=== PATIENT | male | born 1945 | race African-American/Black ===

== ENCOUNTER 2018-01-09 04:31 | Emergency (ER) | payer MEDICARE, BC ==
[2018-01-09 05:01] LABS: #Eosinphils 0.1 thou/uL (0.0-0.7); #Lymphocytes 1.7 thou/uL (1.20-3.40); #Monocytes 0.7 thou/uL (0.11-0.59); #Neutrophils 5.7 thou/uL (1.40-6.50); %Basophils 0.3 % (0.0-1.0); %Eosinophils 1.6 % (0.0-10.0); %Lymphocytes 20.4 % (21.0-51.0); %Monocytes 8.2 % (0.0-10.0); %Neutrophils 69.6 % (42.0-75.0); Hemoglobin 12.2 g/dL (14.0-18.0); Mean Corpuscular Hemoglobin 32.2 pg (27.0-31.0); Mean Platelet Volume 6.8 fL (7.4-10.4); Platelet Count 303 thou/uL (130-400); RBC Distribution Width 13.3 % (11.5-14.5); Red Blood Cell (RBC) Count 3.79 mill/uL (4.70-6.10); White Blood Cell (WBC) Count 8.3 thou/uL (4.8-10.8)
[2018-01-09 05:25] LABS: ALT (SGPT) 15 U/L (8-55); AST (SGOT) 16 U/L (5-34); Albumin 3.8 g/dL (3.4-4.8); Alkaline Phosphatase 60 U/L (40-150); Anion Gap 9 mmol/L (10-20); BUN (Urea Nitrogen) 15 mg/dL (8.4-25.7); Bilirubin, Total 0.7 mg/dL (0.2-1.2); CK (CPK) 70 U/L (30-200); Calc. Creatinine Clearance 0 mL/min (70-130); Calcium 9.4 mg/dL (7.8-10.44); Carbon Dioxide 28 mmol/L (23-31); Chloride 107 mmol/L (98-107); Estimated GFR-MDRD Greater than 90; Glucose 109 mg/dL (83-110); Lipase 12 U/L (8-78); Potassium 3.7 mmol/L (3.5-5.1); Protein, Total 6.8 g/dL (5.8-8.1); Sodium 140 mmol/L (136-145)
[2018-01-09 05:29] LABS: Troponin I 0.092 ng/mL (< 0.028)
--- NOTE | 2018-01-09 09:06 | RAD ---
SINGLE VIEW OF THE CHEST: Comparison: 12-24-17 FINDINGS: Single view of the chest shows a normal sized cardiomediastinal silhouette. Multiple monitors overlie the chest which obscures visualization. There is no evidence of consolidation, mass, or pleural effu bobby. IMPRESSION: No evidence of acute cardiopulmonary disease. POS: [facility]
== END 2018-01-09 06:47 | disposition home or self-care (01) ==
LOC: ERS 04:31
DX: R53.1 Weakness (principal); I10 Essential (primary) hypertension; I25.2 Old myocardial infarction; Z79.899 Other long term (current) drug therapy
CPT/HCPCS: 71045; 80053; 82553; 83690; 83735; 84443; 84484; 85025; 93005

== ENCOUNTER 2018-01-15 03:18 | Inpatient (IN) | payer MEDICARE, BC ==
[2018-01-15] MEDS ORDERED: Nitroglycerin 2% Ointment 1 INCH/1 GM Packet ONE (03:46)
[2018-01-15 03:52] LABS: #Eosinphils 0.1 thou/uL (0.0-0.7); #Lymphocytes 1.2 thou/uL (1.20-3.40); #Monocytes 0.7 thou/uL (0.11-0.59); #Neutrophils 4.9 thou/uL (1.40-6.50); %Basophils 0.7 % (0.0-1.0); %Eosinophils 1.3 % (0.0-10.0); %Lymphocytes 17.7 % (21.0-51.0); %Monocytes 9.7 % (0.0-10.0); %Neutrophils 70.6 % (42.0-75.0); Hemoglobin 12.3 g/dL (14.0-18.0); Mean Corpuscular HGB CONC 32.8 g/dL (32.0-36.0); Mean Corpuscular Hemoglobin 33.3 pg (27.0-31.0); Mean Platelet Volume 7.3 fL (7.4-10.4); Platelet Count 237 thou/uL (130-400); RBC Distribution Width 13.6 % (11.5-14.5); White Blood Cell (WBC) Count 6.9 thou/uL (4.8-10.8)
[2018-01-15 03:58] LABS: INR-International Normal Ratio 0.9; Prothrombin Time 12.6 SEC (12.0-14.7)
[2018-01-15] MEDS ORDERED: Ondansetron HCl/PF 4 MG/2 ML Vial IVP PRN ×2 (04:00→07:50)
[2018-01-15] MEDS ORDERED: Ondansetron ODT 4 MG TAB SL PRN (04:00)
[2018-01-15] MEDS ORDERED: Acetaminophen 325 MG TAB PO PRN ×2 (04:00→07:50)
[2018-01-15 04:13] LABS: ALT (SGPT) 14 U/L (8-55); AST (SGOT) 25 U/L (5-34); Albumin 3.8 g/dL (3.4-4.8); Alkaline Phosphatase 59 U/L (40-150); Anion Gap 12 mmol/L (10-20); BUN (Urea Nitrogen) 16 mg/dL (8.4-25.7); Bilirubin, Total 0.7 mg/dL (0.2-1.2); Calc. Creatinine Clearance 0 mL/min (70-130); Calcium 9.3 mg/dL (7.8-10.44); Carbon Dioxide 25 mmol/L (23-31); Chloride 105 mmol/L (98-107); Estimated GFR-MDRD Greater than 90; Globulin 2.9 g/dL (2.4-3.5); Glucose 128 mg/dL (83-110); Lipase 68 U/L (8-78); Protein, Total 6.7 g/dL (5.8-8.1); Sodium 138 mmol/L (136-145)
[2018-01-15 04:17] LABS: CKMB 4.7 ng/mL (0-6.6)
[2018-01-15 04:23] LABS: Troponin I 2.142 ng/mL (< 0.028)
[2018-01-15] MEDS ORDERED: Metoprolol Tartrate 5 MG/5 ML VIAL ONE (04:48)
[2018-01-15] MEDS ORDERED: Enoxaparin Sodium 80 MG/0.8 ML SYRINGE ONE (04:55)
[2018-01-15 07:17] LABS: Troponin I 2.269 ng/mL (< 0.028)
[2018-01-15 07:37] VITALS: BMI 23.0
[2018-01-15] MEDS ORDERED: Mag-Al 1200 mg/1200 mg/30 ML UDCUP PO PRN (07:50)
[2018-01-15] MEDS ORDERED: Nitroglycerin 0.4 MG TAB (25 Tab Bottle) SL PRN (07:50)
[2018-01-15] MEDS ORDERED: Milk Of Magnesia 30 ML UDCUP PO PRN (07:50)
[2018-01-15] MEDS ORDERED: Ondansetron ODT 4 MG TAB PO PRN (07:50)
--- NOTE | 2018-01-15 07:54 | RAD ---
CHEST 1 VIEW: Date: 01/15/18 COMPARISON: 01/09/18. HISTORY: Pain. FINDINGS: Normal cardiac silhouette. Pulmonary vessels and hilum are normal. Costophrenic angles are clear. No masses or consolidation. Chronic changes in left lung base. No pneumothorax or osseous abnormalities. Overlying monitor leads are identified. IMPRESSION: Chronic changes in left lung base. No acute cardiopulmonary process. POS: [facility]
--- NOTE | 2018-01-15 08:25 | HP ---
PRIMARY CARE PHYSICIAN: Dr. Simon. DAIRY WORKER: Dr. Bustamante. CHIEF COMPLAINT: Chest tightness. HISTORY OF PRESENT ILLNESS: Mr. Page is a pleasant 72-year-old gentleman that has a history of hypertension as well as coronary artery disease. He was recently seen at our facility about a month ago for coronary artery disease. At that time, he underwent a cardiac catheterization and was found to have multivessel disease with severe diffuse disease in the diagonal, left circumflex , the IR, the RCA, and he had 40% lesion in the LAD, and his ejection fraction was estimated at 40%. It was recommended that he be treated medically and Plavix and an LADY inhibitor were added to his regimen and he was discharged. He says that he has been taking his medications regularly since then and then last night he says he woke up around 02:45 in the a.m. with severe tightness in his chest. He said it was in the middle of his chest moving towards the right side. He says he was short of breath with it as well. He did not have any nausea, vomiting, or diaphoresis, but he did have some palpitations. He says the tightness worsened and he came to the emergency room. There, he was given a nitro paste, aspirin, and Lovenox, and he says that it is much better now, but it has not completely resolved yet. He denies having any leg swelling, no PND, no orthopnea recently. REVIEW OF SYSTEMS: All systems were reviewed and are negative except for that mentioned in the history of present illness. PAST MEDICAL HISTORY: Significant for hypertension, rheumatoid arthritis, depression, tobacco abuse, and coronary artery disease, and actually he is a former tobacco abuser. PAST SURGICAL HISTORY: He has had a tonsillectomy and knee surgery. ALLERGIES: PENICILLIN. SOCIAL HISTORY: He is a former smoker. He said he quit years ago. He denies any alcohol use. He is and has 1 child. He would like to be a F[employer] and his surrogate decision maker is his , Makeda. FAMILY HISTORY: Significant for hypertension. CURRENT MEDICATIONS: Include lisinopril 5 mg daily, Plavix 75 mg daily, carvedilol 3.125 mg twice a day, atorvastatin 40 mg daily, aspirin 325 mg daily , Ranexa 500 mg twice a day, prednisone 5 mg twice daily, Arava 20 mg daily, hydrocodone 30 mg twice a day as needed. PHYSICAL EXAMINATION: GENERAL: He is alert and oriented. He appears to be in no acute distress. He is well-developed and well-nourished. VITAL SIGNS: Blood pressure was 151/89, heart rate 108, respiratory rate of 18 , temperature is 98. HEENT: Pupils are equal, round, and reactive. Extraocular muscles are intact. His sclerae are anicteric. Throat: There is no erythema, no exudates. NECK: No adenopathy, no bruits. LUNGS: Clear to auscultation. There is no wheezing, no rales, no rhonchi, and his breath sounds were not good. CARDIOVASCULAR: He had a normal S1 and S2. I did not appreciate an S3 or S4. No murmurs or clicks, no rubs. ABDOMEN: Soft, it is nontender, nondistended. Positive for bowel sounds. There is no rebound, no guarding, no organomegaly. EXTREMITIES: There is no clubbing or cyanosis, no edema. NEUROLOGIC: He has got no calf muscle tenderness and dorsalis pedis pulses were palpable. SKIN AND INTEGUMENT: There are no skin lesions, no rash. Skin is warm and dry and adequate skin turgor. LABORATORY RESULTS: On his EKG and this is by my reading, it was sinus rhythm. The rate was 116. There was some ST-segment depression in V5 through V6. His chest x-ray, this is also by my reading, can see the overlying LifeVest leads. Heart size appears actually normal and there was some increasing pulmonary vascular markings. Costophrenic angles are sharp, no evidence of any effusion, possible volume overload. White blood cell count was 6.9, hemoglobin 12.3, hematocrit is 37.6, MCV 102, platelet count is 237. INR 0.9. Chemistry: Sodium 138, potassium 4.0, chloride is 105, CO2 is 25, BUN of 16, creatinine 0.9, glucose is 128. Troponin is 2.142. ASSESSMENT AND PLAN: This is a pleasant 72-year-old gentleman, who presents to the emergency room with, 1. NSTEMI- Chest tightness. He had an elevated troponin in the positive range. He also has known multivessel coronary artery disease, which is being treated medically. He is being admitted to the hospital for a non-ST segment elevated MT. He is going to be placed on telemetry. We will continue aspirin, nitrates, beta blockers, and full-dose heparin, and also continue Plavix as well. We will continue to trend his cardiac enzymes until they begin to trend down. 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 2. Hypertension. We will continue lisinopril for blood pressure management as well as p.r.n. medicines as needed. 3. Rheumatoid Arthritis - Will continue his home medications 3. He will be placed on gastrointestinal prophylaxis. DOUGLAS
[2018-01-15] MEDS ORDERED: HYDROCODONE BITARTRATE 30 MG PO PRN (09:15)
[2018-01-15] MEDS: Lisinopril 5 MG TAB PO SCH (09:29)
[2018-01-15] MEDS: Clopidogrel Bisulfate 75 MG TAB PO SCH (09:30)
[2018-01-15] MEDS: Famotidine 20 MG TAB PO SCH ×2 (09:30→20:27)
[2018-01-15] MEDS: Docusate 100 MG CAP PO SCH ×2 (09:30→20:28)
[2018-01-15] MEDS: Leflunomide 10 mg Tablet PO SCH (09:31)
[2018-01-15 10:46] LABS: Troponin I 2.329 ng/mL (< 0.028)
[2018-01-15 10:53] LABS: Calc. Creatinine Clearance 85 mL/min (70-130); Estimated GFR-MDRD Greater than 90
[2018-01-15 10:53] LABS: Hemoglobin 11.4 g/dL (14.0-18.0); Platelet Count 249 thou/uL (130-400)
[2018-01-15] MEDS: Carvedilol 3.125 MG TAB PO SCH ×2 (11:52→16:33)
[2018-01-15] MEDS ORDERED: Nitroglycerin 2% Ointment 1 INCH/1 GM Packet TOP SCH (12:00)
--- NOTE | 2018-01-15 13:25 | CON ---
DATE OF CONSULTATION: 01/15/2018 REASON FOR CONSULTATION: Non-STEMI. HISTORY OF PRESENT ILLNESS: Mr. Page is a very pleasant 72-year-old gentleman who comes to the hospital for an episode of chest pain. He was at home, he said, he had a steak h e thinks he should not have had this. Eventually was woken up at about 3:00 a.m. with severe chest t ightness, diaphoresis, and shortness of breath. It did not get any better, so he decided to come in for evaluation. He was found to have elevated troponins, so Cardiology is being consulted for this, but he does have a history of coronary disease about 2 weeks ago. He came in with a similar presenta tion with a non-STEMI and he was found to have a diffuse disease with very severe circumflex disease. He has a left dominant system LPL was severely diseased at a bifurcation, not a good artery for maikel nting and he had an intermediate ramus that was too small for any intervention that was thought to be the culprit as it had only ELIESER 1 flow. His LAD had long calcified lesion about 40%-50% mid vessel and he had a severely reduced EF at about 30%-35%, so he was sent home on a LifeVest. He had been do ing well otherwise. He tells me his blood pressure at home has been in the 130s to 150s most of the time. Currently, he is pain free. PAST MEDICAL HISTORY: 1. Hypertension. 2. Rheumatoid arthritis. 3. Anxiety depression. 4. Tobacco abuse. 5. Coronary artery disease as above. 6. Quit smoking recently. PAST SURGICAL HISTORY: 1. Tonsillectomy. 2. Knee surgery. ALLERGIES: PENICILLIN. OUTPATIENT MEDICATIONS: 1. Prednisone 5 mg p.o. b.i.d. 2. Ranexa 500 mg b.i.d. 3. Lisinopril 5 mg a day. 4. Arava 20 mg a day. 5. Hydrocodone p.r.n. 6. Plavix 75 mg a day. 7. Coreg 3.125 mg b.i.d. 8. Lipitor 40 mg a day. 9. Aspirin 325 a day. SOCIAL HISTORY: Former tobacco use, quit some years ago. No alcohol use, no drug use. FAMILY HISTORY: Noncontributory. REVIEW OF SYSTEMS: A 12-point review of systems was done and is all negative unless stated in the hi story of present illness. PHYSICAL EXAMINATION: VITAL SIGNS: Temperature 98.5, pulse 90, respiration rate 17, satting 96% on room air, blood pressur e 140/73. GENERAL: Awake, alert, oriented x3, in no distress. HEENT: Normocephalic, atraumatic. NECK: Supple. LUNGS: Clear. CARDIOVASCULAR: S1, S2, no S3, S4, no murmurs, no rubs. ABDOMEN: Soft, positive bowel sounds. EXTREMITIES: No edema. SKIN: Warm and dry. LABORATORY WORK: Reviewed. CBC with a white count of 6.9, hemoglobin 12.3, hematocrit 37, platelet count 237. Coags were negative. Chemistries with troponin initially at 2.1, then 2.2, then 2.3. GF R is greater than 90. BNP was 337, albumin of 3.8. EKG was reviewed, no acute ischemic changes, some ST depression suggestive of anterolateral ischemia. Most recent echo was done about 20 days ago with an EF of 30%-35%. Hypokinesis of the apex and anter olateral hypokinesis, 1-3 diastolic heart failure. RVSP was 38 mmHg. ASSESSMENT AND PLAN: 1. Non-ST elevation myocardial infarction. 2. Coronary artery disease. Multivessel. Small branching disease, not amenable to catheter based i nterventions. 3. Hypertension. PLAN: 1. Full anticoagulation with Lovenox today and tomorrow. 2. I have spoken with him about possibly revascularization with bypass which would be the only optio n right now. He said that he would like to exhaust all medication treatment before bypass is conside red. His artery is a very small and diffusely diseased. I will talk one of the surgeons to see if jose edge is even a candidate for bypass at all and his LAD seems to be moderately diseased, but it is a long lesion, so this may be ischemic and may hold a CONNELL for a long time. We will get their opinion to s ee what they think about his coronary anatomy. Otherwise, I will maximize his antianginal medication s with adding Imdur at 30 mg a day. This will also help his blood pressure. He is already on a beta butch, Plavix, aspirin, statin, and an LADY inhibitor, ranolazine already at 500 b.i.d. as well. Thank you for letting us participate in the care of your patient. We will follow.
[2018-01-15] MEDS: predniSONE 5 MG TAB PO SCH (16:33)
[2018-01-15] MEDS: Atorvastatin Calcium 40 MG TAB PO SCH (20:27)
[2018-01-15] MEDS: Enoxaparin Sodium 80 MG/0.8 ML SYRINGE SC SCH (20:28)
[2018-01-16 05:39] LABS: #Eosinphils 0.1 thou/uL (0.0-0.7); #Lymphocytes 1.4 thou/uL (1.20-3.40); #Monocytes 0.7 thou/uL (0.11-0.59); #Neutrophils 3.4 thou/uL (1.40-6.50); %Basophils 0.6 % (0.0-1.0); %Eosinophils 2.5 % (0.0-10.0); %Lymphocytes 25.1 % (21.0-51.0); %Monocytes 12.9 % (0.0-10.0); Hemoglobin 11.6 g/dL (14.0-18.0); Mean Corpuscular HGB CONC 32.6 g/dL (32.0-36.0); Mean Corpuscular Hemoglobin 32.9 pg (27.0-31.0); Mean Platelet Volume 7.7 fL (7.4-10.4); Platelet Count 235 thou/uL (130-400); RBC Distribution Width 13.5 % (11.5-14.5); Red Blood Cell (RBC) Count 3.53 mill/uL (4.70-6.10); White Blood Cell (WBC) Count 5.7 thou/uL (4.8-10.8)
[2018-01-16 05:41] LABS: Anion Gap 10 mmol/L (10-20); BUN (Urea Nitrogen) 10 mg/dL (8.4-25.7); Calc. Creatinine Clearance 93 mL/min (70-130); Calcium 8.7 mg/dL (7.8-10.44); Carbon Dioxide 24 mmol/L (23-31); Cardiac Risk 2.2 (Less than 4.5); Chloride 107 mmol/L (98-107); Cholesterol 137 mg/dl (< 200 Desired); Estimated GFR-MDRD Greater than 90; Glucose 86 mg/dL (83-110); HDL Cholesterol 61 mg/dL (>60 Neg Risk); LDL Cholesterol, Calculated 61 mg/dL; Potassium 3.9 mmol/L (3.5-5.1); Sodium 137 mmol/L (136-145); Triglycerides 73 mg/dL (Less than 150)
[2018-01-16] MEDS: Docusate 100 MG CAP PO SCH ×2 (11:08→20:31)
[2018-01-16] MEDS: Famotidine 20 MG TAB PO SCH ×2 (11:08→20:31)
[2018-01-16] MEDS: Carvedilol 3.125 MG TAB PO SCH ×2 (11:08→17:01)
[2018-01-16] MEDS: Lisinopril 5 MG TAB PO SCH (11:08)
[2018-01-16] MEDS: Leflunomide 10 mg Tablet PO SCH (11:09)
[2018-01-16] MEDS: Clopidogrel Bisulfate 75 MG TAB PO SCH (11:09)
[2018-01-16] MEDS: predniSONE 5 MG TAB PO SCH ×2 (11:10→17:00)
[2018-01-16] MEDS: Aspirin 325 mg Enteric Coated Tablet PO SCH (11:10)
[2018-01-16] MEDS: Enoxaparin Sodium 80 MG/0.8 ML SYRINGE SC SCH ×2 (11:12→20:30)
--- NOTE | 2018-01-16 12:33 | PDOC.PN ---
- Subjective Encounter Start Date: 01/16/18 Encounter Start Time: 12:31 Mr. Page was seen today in follow-up of NSTEMI. He does not have any complaints. He denies having any chest tightness. He denies any shortness of breath. - Objective Resuscitation Status: Resuscitation Status FULL:Full Resuscitation MAR Reviewed: Yes Vital Signs & Weight: Vital Signs (12 hours) Temp Pulse Pulse Pulse Resp BP BP 01/16/18 11:08 90 01/16/18 10:09 99 103 H 131/63 155/76 H 01/16/18 04:00 97.8 F 90 12 BP Pulse Ox Pulse Ox Pulse Ox 01/16/18 11:08 01/16/18 10:09 98 96 01/16/18 04:00 132/69 97 Weight Weight 164 lb 14.4 oz I&O: 01/15/18 01/16/18 01/17/18 06:59 06:59 06:59 Intake Total 1200 Output Total 950 Balance 250 Result Diagrams: 01/16/18 04:55 01/16/18 04:55 Phys Exam - Physical Examination HEENT: PERRLA Respiratory: no wheezing, no rales, no rhonchi, clear to auscultation bilateral Cardiovascular: RRR, no significant murmur, no rub Gastrointestinal: soft, non-tender, no distention, positive bowel sounds Musculoskeletal: no edema Dx/Plan (1) Non-ST elevation DC (NSTEMI) Code(s): I21.4 - NON-ST ELEVATION (NSTEMI) MYOCARDIAL INFARCTION Status: Acute Comment: s/p cardiac cath showing diffuse disease with EF 40%, med mgmt , ASA 325mg and Plavix 75mg daily (2) HTN (hypertension) Code(s): I10 - ESSENTIAL (PRIMARY) HYPERTENSION Status: Chronic Qualifiers: Hypertension type: essential hypertension Qualified Code(s): I10 - Essential (primary) hypertension Comment: Resume Bystolic, add Hydralazine, serial monitoring (3) Rheumatoid arthritis Code(s): M06.9 - RHEUMATOID ARTHRITIS, UNSPECIFIED Status: Acute - Plan * NSTEMI- discussed with Dr. Bustamante. He offered to have him evaluated for Bypass Surgery, however the patient would like to try and maximize medical therapy before considering this * Imdur was added to his regimen * HTN - blood pressure has improved * Rheumatoid arthritis- stable * Disposition as per [employer] Special [employer] Teacher.
--- NOTE | 2018-01-16 18:25 | PDOC.CTH ---
Cardiology Progress Note - Subjective He is doing well. No more chest tightness. - Objective Vital Signs Temp Pulse Pulse Pulse Resp BP BP 01/16/18 16:30 98.6 F 93 16 01/16/18 11:44 98.0 F 86 18 01/16/18 11:08 90 01/16/18 10:09 99 103 H 131/63 155/76 H 01/16/18 08:10 97.8 F 80 20 BP Pulse Ox Pulse Ox Pulse Ox 01/16/18 16:30 130/70 98 01/16/18 11:44 103/51 L 98 01/16/18 11:08 01/16/18 10:09 98 96 01/16/18 08:10 116/59 L 97 Weight 164 lb 14.4 oz 01/15/18 01/16/18 01/17/18 06:59 06:59 06:59 Intake Total 1200 Output Total 950 Balance 250 - Physical Examination General/Neuro: alert & oriented x3, NAD Neck: no JVD present Lungs: CTA, unlabored respirations Heart: RRR Abdomen: NT/ND Extremities: other: (no edema.) - Telemetry Telemetry Rhythm: NSR - Labs Result Diagrams: 01/16/18 04:55 01/16/18 04:55 Troponin/CKMB CK-MB (CK-2) 4.7 ng/mL (0-6.6) 01/15/18 03:39 Troponin I 2.329 ng/mL (< 0.028) H* 01/15/18 09:33 - Assessment/Plan 1. NSTEMI 2. Severe ischemic CM EF at 20% 3. CAD. 4. Moderate AI PLAN: - Continue Lifevest use - I reviewed the films and the general consensus is that he would benefit from CABG with a CONNELL to LAD. - Will also need AVR due to moderate AI. - He is amenable to this. will ask CT surgery consultation. He is on plavix and it would be prudent to wait 7 days after holding before surgery. This may be done as an outpatient. He is currently asymptomatic an may be discharged once we have a plan with surgery moving forward.
[2018-01-16] MEDS: Atorvastatin Calcium 40 MG TAB PO SCH (20:31)
[2018-01-17] MEDS: Leflunomide 10 mg Tablet PO SCH (10:10)
[2018-01-17] MEDS: Famotidine 20 MG TAB PO SCH (10:10)
[2018-01-17] MEDS: predniSONE 5 MG TAB PO SCH ×2 (10:11→19:37)
[2018-01-17] MEDS: Carvedilol 3.125 MG TAB PO SCH ×2 (10:11→19:37)
[2018-01-17] MEDS: Clopidogrel Bisulfate 75 MG TAB PO SCH (10:11)
[2018-01-17] MEDS: Docusate 100 MG CAP PO SCH (10:11)
[2018-01-17] MEDS: Lisinopril 5 MG TAB PO SCH (10:11)
[2018-01-17] MEDS: Aspirin 325 mg Enteric Coated Tablet PO SCH (10:12)
[2018-01-17] MEDS: Enoxaparin Sodium 80 MG/0.8 ML SYRINGE SC SCH (10:12)
[2018-01-17 13:26] VITALS: BP 110/58; TEMP 98.9
--- NOTE | 2018-01-17 15:52 | PDOC.PN ---
- Subjective Encounter Start Date: 01/17/18 Encounter Start Time: 15:49 Mr. Page was seen today in follow-up of NSTEMI. He does not have any complaints. He denies chest pain and shortness of breath. - Objective Resuscitation Status: Resuscitation Status FULL:Full Resuscitation MAR Reviewed: Yes Vital Signs & Weight: Vital Signs (12 hours) Temp Pulse Pulse Pulse Resp BP BP 01/17/18 13:24 98.9 F 97 18 01/17/18 10:20 116 H 112 H 166/78 H 131/57 L 01/17/18 10:11 118 H 01/17/18 09:41 98.1 F 118 H 01/17/18 04:05 98.0 F 89 16 BP BP Pulse Ox Pulse Ox Pulse Ox 01/17/18 13:24 110/58 L 100 01/17/18 10:20 100 98 01/17/18 10:11 01/17/18 09:41 141/69 H 96 01/17/18 04:05 117/56 L 96 Weight Weight 164 lb 14.4 oz I&O: 01/16/18 01/17/18 01/18/18 06:59 06:59 06:59 Intake Total 1200 240 Output Total 950 700 Balance 250 -460 Result Diagrams: 01/16/18 04:55 01/16/18 04:55 Phys Exam - Physical Examination HEENT: PERRLA Respiratory: no wheezing, no rales, no rhonchi, clear to auscultation bilateral Cardiovascular: RRR, no significant murmur, no rub no gallop Gastrointestinal: soft, non-tender, no distention, positive bowel sounds Musculoskeletal: edema present Dx/Plan (1) Non-ST elevation OK (NSTEMI) Code(s): I21.4 - NON-ST ELEVATION (NSTEMI) MYOCARDIAL INFARCTION Status: Acute Comment: s/p cardiac cath showing diffuse disease with EF 40%, med mgmt , ASA 325mg and Plavix 75mg daily (2) HTN (hypertension) Code(s): I10 - ESSENTIAL (PRIMARY) HYPERTENSION Status: Chronic Qualifiers: Hypertension type: essential hypertension Qualified Code(s): I10 - Essential (primary) hypertension Comment: Resume Bystolic, add Hydralazine, serial monitoring (3) Rheumatoid arthritis Code(s): M06.9 - RHEUMATOID ARTHRITIS, UNSPECIFIED Status: Acute - Plan * NSTEMI- Imdur has been added to his regimen. * He has been stabized with two days of Full dose Lovenox * He is stable for discharge .
--- NOTE | 2018-01-17 17:43 | PDOC.CTH ---
Cardiology Progress Note - Subjective No chest pain, tightness ,pressure, SOB. - Objective Vital Signs Temp Pulse Pulse Pulse Resp BP BP 01/17/18 13:24 98.9 F 97 18 01/17/18 10:20 116 H 112 H 166/78 H 131/57 L 01/17/18 10:11 118 H 01/17/18 09:41 98.1 F 118 H BP BP Pulse Ox Pulse Ox Pulse Ox 01/17/18 13:24 110/58 L 100 01/17/18 10:20 100 98 01/17/18 10:11 01/17/18 09:41 141/69 H 96 Weight 164 lb 14.4 oz 01/16/18 01/17/18 01/18/18 06:59 06:59 06:59 Intake Total 1200 240 Output Total 950 700 Balance 250 -460 - Physical Examination General/Neuro: alert & oriented x3, NAD Neck: no JVD present Lungs: CTA, unlabored respirations Heart: RRR Abdomen: NT/ND Extremities: other: (no edema) - Telemetry Telemetry Rhythm: NSR - Labs Result Diagrams: 01/16/18 04:55 01/16/18 04:55 Troponin/CKMB CK-MB (CK-2) 4.7 ng/mL (0-6.6) 01/15/18 03:39 Troponin I 2.329 ng/mL (< 0.028) H* 01/15/18 09:33 - Assessment/Plan 1. NSTEMI 2. Severe ischemic CM EF at 20% 3. CAD. 4. Moderate AI 5. Rheumatoid arthritis. PLAN: - Continue Lifevest use - Continue medical therapy for now. - He will see CT surgery as an outpatient in the next few days to discuss possible CABG and possible AVR due to his Moderate AI. - He is stable for discharge home.
--- NOTE | 2018-01-18 02:18 | DIS ---
DATE OF ADMISSION: 01/15/2018 DATE OF DISCHARGE: 01/17/2018 PRIMARY CARE PHYSICIAN: Dr. Andrew Gauthier. DISCHARGE DISPOSITION: Home. PRIMARY DISCHARGE DIAGNOSES: 1. Non-ST elevation myocardial infarction. 2. Chronic systolic heart failure. 3. Hypertension. 4. Rheumatoid arthritis. DISCHARGE MEDICATIONS: Include Imdur 30 mg 1 p.o. daily was added. Continue Ranexa 500 mg twice a d ay, Zestril 5 mg daily, Plavix 75 mg daily, carvedilol 3.125 mg twice a day, Lipitor 40 mg daily, asp irin 325 mg daily, prednisone 5 mg twice a day, Arava 20 mg daily, and hydrocodone 30 mg extended-rel ease twice a day. PROCEDURES DONE DURING ADMISSION: The patient had an echocardiogram, which demonstrated an ejection fraction estimated at 20%-25%. There was grade I/III diastolic dysfunction and severe global hypokin esis. CODE STATUS: FULL CODE. ALLERGIES: PENICILLINS. HOSPITAL COURSE: Mr. Page is a pleasant 72-year-old gentleman who presented to the emergency room with complaints of chest tightness as well as some dyspnea. He was evaluated in the ER and found to have an elevated troponin. He was evaluated by his spray dry operator. He has known multivessel coronary artery disease and had recently been cathed last month. At that time, it was recommended that he und ergo medical management; however, on this occasion, he was offered potential revascularization with c onsideration of bypass surgery. The patient seemed agreeable, however, since he has had this recent NSTEMI, Dr. Bustamante feels that the best to wait a few weeks for him to stabilize and then consider byp ass surgery as an outpatient. He did add Imdur to his regimen and he is currently being discharged.
== END 2018-01-17 17:40 | disposition home or self-care (01) | DRG 281 ==
LOC: ERS 03:18 → 2NO 07:02
PROVIDERS: ADMIT Internal Medicine; ATTEND Internal Medicine
DX: I21.4 Non-ST elevation (NSTEMI) myocardial infarction (principal); I50.22 Chronic systolic (congestive) heart failure; I25.10 Atherosclerotic heart disease of native coronary artery without angina pectoris; Z79.02 Long term (current) use of antithrombotics/antiplatelets; M06.9 Rheumatoid arthritis, unspecified; F32.9 Major depressive disorder, single episode, unspecified; Z87.891 Personal history of nicotine dependence; Z88.0 Allergy status to penicillin; I11.0 Hypertensive heart disease with heart failure; F41.9 Anxiety disorder, unspecified; Z79.52 Long term (current) use of systemic steroids
CPT/HCPCS: 36415; 71045; 80048; 80053; 80061; 82553; 83690; 83880; 84484; 85025; 85610; 93005; 93306; 93798; 96372; 96374; J1650

== ENCOUNTER 2018-01-29 13:00 | Inpatient (IN) | payer MEDICARE, BC ==
[2018-01-29 15:19] VITALS: BMI 23.3
[2018-01-30] MEDS ORDERED: Clindamycin/D5W 900 mg/50 ml Premix Bag ONE (06:15)
[2018-01-30] MEDS ORDERED: Albumin 5% 0 ML ONE (06:22)
[2018-01-30] MEDS ORDERED: Midazolam HCl 5 mg/5 ml Vial ONE (06:23)
[2018-01-30] MEDS ORDERED: Fentanyl 250 MCG/5 ML VIAL ONE (06:23)
[2018-01-30] MEDS ORDERED: Vecuronium 10 MG VIAL ONE ×2 (06:24→14:44)
[2018-01-30] MEDS ORDERED: Dexmedetomidine 200 MCG/2 ML VIAL ONE (06:24)
[2018-01-30] MEDS ORDERED: Albumin 5% 500 ML ONE (06:27)
[2018-01-30] MEDS ORDERED: Vancomycin HCl 1.5 GM in Sodium Chloride 0.9% 250 ML 300 ML IVPB SCH (06:30)
[2018-01-30] MEDS ORDERED: Heparin 10,000 UNITS/1 ML VIAL 30,000 UNITS in Sodium Chloride 0.9% 1,000 ML FS SCH (06:45)
[2018-01-30] MEDS ORDERED: Hydrocortisone Sod Succ/PF 100 mg/2 ml Vial ONE ×2 (07:03→14:44)
[2018-01-30] MEDS ORDERED: PHENYLEPHRINE-NS 100 MCG/ML 10 ML SYRINGE ONE (07:14)
[2018-01-30] MEDS ORDERED: Milrinone 10 MG/10 ML VIAL ONE ×2 (07:14→08:28)
[2018-01-30] MEDS ORDERED: Nitroglycerin 50 MG/250 ML BOT 250 ML IVPB PRN (11:00)
[2018-01-30] MEDS ORDERED: D5 1/2 NS w/20 mEq KCL 1,000 ML IV SCH (11:00)
[2018-01-30] MEDS ORDERED: Hetastarch 6% 500 ML 500 ML IVPB PRN (11:00)
[2018-01-30] MEDS ORDERED: Post-Op Insulin Drip Protocol IVPB ONE (11:00)
[2018-01-30] MEDS ORDERED: Acetaminophen 325 MG TAB PO PRN (11:00)
[2018-01-30] MEDS ORDERED: Bisacodyl 10 MG SUPP PR PRN (11:00)
[2018-01-30] MEDS ORDERED: Fentanyl 100 MCG/2 ML VIAL SLOW IVP PRN ×2 (11:00)
[2018-01-30] MEDS ORDERED: hydrALAZINE 20 MG/ML VIAL SLOW IVP PRN (11:00)
[2018-01-30] MEDS ORDERED: Magnesium 2 GM/NS 0.9% 100 ML 2 GM in Premix Bag 1 BAG IVPB SCH (11:00)
[2018-01-30] MEDS ORDERED: Norepinephrine 8 MG/0.9% NS 250 ML IVPB PRN (11:00)
[2018-01-30] MEDS ORDERED: Guaifenesin DM 100-10/5 ML UDCUP PO PRN (11:00)
[2018-01-30] MEDS ORDERED: Mag-Al 1200 mg/1200 mg/30 ML UDCUP PO PRN (11:00)
[2018-01-30] MEDS ORDERED: Bisacodyl 5 MG TAB PO PRN (11:00)
[2018-01-30] MEDS ORDERED: Dextrose 50% Abboject 50 ML SYRINGE SLOW IVP PRN (11:08)
[2018-01-30] MEDS ORDERED: Dextrose 5% in Water 1,000 ML IV PRN (11:08)
[2018-01-30 11:32] LABS: #Eosinphils 0.1 thou/uL (0.0-0.7); #Monocytes 0.8 thou/uL (0.11-0.59); #Neutrophils 10.2 thou/uL (1.40-6.50); %Basophils 0.2 % (0.0-1.0); %Eosinophils 0.9 % (0.0-10.0); %Lymphocytes 8.2 % (21.0-51.0); %Monocytes 6.6 % (0.0-10.0); %Neutrophils 84.1 % (42.0-75.0); Hemoglobin 9.6 g/dL (14.0-18.0); Mean Corpuscular HGB CONC 31.5 g/dL (32.0-36.0); Mean Corpuscular Hemoglobin 32.2 pg (27.0-31.0); Mean Platelet Volume 6.9 fL (7.4-10.4); Platelet Count 174 thou/uL (130-400); RBC Distribution Width 13.5 % (11.5-14.5); Red Blood Cell (RBC) Count 2.97 mill/uL (4.70-6.10); White Blood Cell (WBC) Count 12.2 thou/uL (4.8-10.8)
--- NOTE | 2018-01-30 11:35 | OP ---
DATE OF OPERATION: 01/30/2018 PREOPERATIVE DIAGNOSES: Coronary artery rheumatoid arthritis/hypertension/ rheumatoid arthritis/depressed left ventricular ejection fraction. POSTOPERATIVE DIAGNOSES: Coronary artery rheumatoid arthritis/hypertension/ rheumatoid arthritis/depressed left ventricular ejection fraction. PROCEDURES: 1. Coronary artery bypass grafting x3. Left internal mammary artery to 2.0 mm distal LAD. Reverse saphenous vein 1.0 mm diffusely diseased ramus - small conduit and small target - this is not a redo target Reverse saphenous vein 1.0 mm distal OM - this is not a redo target. ANESTHESIA: General endotracheal, Baldo Burns. SURGEONS: Dr. Maulik Capps and Dr. Bari Love. PUMP TIME: 71 minutes. CROSS-CLAMP TIME: 44 minutes. LOW CORE TEMP: 32-degree Celsius. WOOD AND HARDWARE OUTFITTER: Dallin Main. DRAINS: 24-Chinese chest tubes x2. DRIPS: Levophed. TRANSFUSIONS: None. DESCRIPTION OF PROCEDURE: After consent was obtained, the patient was brought to the operating room and placed in supine position on the operating room table. Appropriate cardiopulmonary monitor was placed and general endotracheal anesthesia induced. Chest, abdomen, and legs were prepped and draped in usual sterile fashion. Greater saphenous vein was harvested from the left lower extremity utilizing an endoscopic technique. Wounds irrigated and closed in layers. Median sternotomy was performed. Left internal mammary artery was harvested as a pedicle graft. The patient was systemically heparinized. Distal pedicle was divided and infused with papaverine. Thymic fat and pericardium were divided with electrocautery. Pericardial stay sutures were placed. Aortic and atrial cannulation was performed. After adequate heparinization, patient was placed on cardiopulmonary bypass. Distal targets were marked. Aortic cross-clamp was applied and antegrade cardioplegia was administered. A total of one liter of antegrade and retrograde [place] cardioplegia was given. Retrograde cardioplegia was used due to aortic insufficiency and failure to pressurize the aorta. Reverse saphenous vein was anastomosed to the distal OM RCA in end-to-side fashion with running 7-0 Prolene suture. Anastomosis tested and was hemostatic. Reverse saphenous vein was anastomosed to OM in end-to-side fashion with running 7-0 Prolene suture. Anastomosis tested and was hemostatic. Mammary artery was brought through a window in the pericardium and anastomosed the LAD in end-to-side fashion with running 7-0 Prolene suture. All anastomoses were probed with 1 mm probe prior to completion. On release of the mammary clamps, good hooding in the anastomosis and good distal flow. Pedicle was secured with interrupted 6-0 Prolene sutures. Cross-clamp was removed and partial occluding clamp placed. Saphenous vein to the OM was anastomosed to aortic root with running 6-0 Prolene suture. Saphenous vein graft was anastomosed to the hernandez of the OM graft. Partial occluding clamp was removed and grafts deaired. Anastomoses were inspected for hemostasis, which was good. The patient was warmed and weaned from cardiopulmonary bypass. After resumption of sinus rhythm, good hemodynamics, and temperature greater than 36.5, bypass was discontinued. Transfusions were given. Decannulation was performed and pursestring sutures secured. The retrograde cardioplegic catheter was removed and its pursestring sutures secured. The 24-Chinese chest tubes x2 were placed in the mediastinum. Vancomycin paste was placed on the sternal edges. After adequate hemostasis had been obtained, the sternum was closed with #7 wire. Sternum was treated with platelet-rich plasma and wires twisted. Wounds irrigated, treated with platelet-poor plasma, and closed in multiple layers. Needle, sponge, and instrument counts were all reported as correct at the end of the procedure. The patient was transferred to the intensive care unit stable, but critical condition. DOUGLAS
[2018-01-30 11:39] LABS: INR-International Normal Ratio 1.5
[2018-01-30] MEDS: Insulin Regular 300 UNITS/3 ML VIAL SC PRN ×3 (11:44→20:12)
[2018-01-30] MEDS: Clindamycin/D5W 900 MG in Premix Bag 1 BAG IVPB SCH ×3 (11:46→23:04)
[2018-01-30] MEDS: Ketorolac Tromethamine 30 MG/ML VIAL IVP SCH ×3 (11:47→23:03)
[2018-01-30 11:56] LABS: Base Excess (BEa) -3.5 mEq/L (-2.0 to +3.0); CO2 Tension 30.6 mmHg (35.0-45.0); Calcium, Ionized 0.98 mmol/L (1.12-1.30); Carboxyhemoglobin (COHb) 1.3 gm% (0.0-3.0); Hemoglobin (Hb) 9.3 g/dL (14.0-18.0); O2 Tension (PaO2) 179.2 mmHg (> 70.0); Potassium - ABG Lab 3.64 mmol/L (3.70-5.30); pH, Arterial 7.43 (7.35-7.45)
[2018-01-30 11:57] LABS: Anion Gap 9 mmol/L (10-20); BUN (Urea Nitrogen) 9 mg/dL (8.4-25.7); Calc. Creatinine Clearance 108 mL/min (70-130); Calcium 7.5 mg/dL (7.8-10.44); Carbon Dioxide 22 mmol/L (23-31); Chloride 111 mmol/L (98-107); Estimated GFR-MDRD Greater than 90; Glucose 150 mg/dL (83-110); Sodium 138 mmol/L (136-145)
[2018-01-30 12:02] LABS: Puncture Site ALINE
[2018-01-30] MEDS: Potassium Chloride 20 MEQ/100 ML PREMIX BAG IVPB PRN (12:23)
--- NOTE | 2018-01-30 12:51 | RAD ---
CHEST ONE VIEW: History: 72-year-old male follow up post op open heart. Comparison: 01-15-18 FINDINGS: Recent post underlying sternotomy with right subclavian catheter and endotracheal tubes in position. Chest tubes in place. Pleural and parenchymal changes in the left base, evidence for some post op rachid nge or minimal subsegmental atelectasis. No evidence for pneumothorax. IMPRESSION: Pleural and parenchymal changes in the left base, evidence for some post op change. No significant pn eumothorax. Continued short term follow up. POS: [facility]
[2018-01-30] MEDS ORDERED: Magnesium 5 GM/10 ML VIAL ONE (14:44)
[2018-01-30] MEDS ORDERED: Norepinephrine 4 MG/4 ML VIAL ONE (14:44)
[2018-01-30] MEDS ORDERED: Lidocaine 2% PF 100 mg/5 ml Syringe ONE (14:44)
[2018-01-30] MEDS ORDERED: Thrombin 5000 UNITS/5 ML VIAL ONE (14:44)
[2018-01-30] MEDS ORDERED: ePHEDrine/0.9% NaCl/PF SYRINGE 50 mg/10 ml ONE (14:44)
[2018-01-30] MEDS ORDERED: PROPOFOL 200 MG/20 ML VIAL ONE (14:44)
[2018-01-30] MEDS ORDERED: Calcium Chloride 1 GM/10 ML Abboject SYRINGE ONE (14:44)
[2018-01-30] MEDS ORDERED: Mannitol 12.5 GM/50 ML ONE (14:44)
[2018-01-30] MEDS ORDERED: Cardioplegic Soln 1,000 ML BAG ONE (14:44)
[2018-01-30] MEDS ORDERED: Papaverine 60 MG/2 ML VIAL ONE (14:44)
[2018-01-30] MEDS ORDERED: Sodium Bicarb 50 MEQ/50 ML VIAL ONE (14:44)
[2018-01-30] MEDS ORDERED: Heparin 30,000 units/30 ml VIAL ONE (14:44)
[2018-01-30] MEDS ORDERED: Aminocaproic Acid 5 GM/20 ML VIAL ONE (14:44)
[2018-01-30] MEDS ORDERED: Nitroglycerin 50 MG/250 ML BOT ONE (14:44)
[2018-01-30] MEDS ORDERED: Protamine Sulfate 250 MG/25 ML VIAL ONE (14:44)
[2018-01-30] MEDS ORDERED: Potassium Chloride 60 MEQ/30 ML VIAL ONE (14:44)
[2018-01-30] MEDS ORDERED: Heparin 5,000 UNITS/ML VIAL ONE (14:44)
--- NOTE | 2018-01-30 15:42 | EKG ---
Test Reason : CABG Blood Pressure : / mmHG Vent. Rate : 083 BPM Atrial Rate : 083 BPM P-R Int : 130 ms QRS Dur : 088 ms QT Int : 394 ms P-R-T Axes : 059 011 067 degrees QTc Int : 462 ms Normal sinus rhythm Low voltage QRS Cannot rule out Anterior infarct , age undetermined Abnormal ECG When compared with ECG of 15-JAN-2018 03:27, (Unconfirmed) Minimal criteria for Anterior infarct are now Present ST elevation has replaced ST depression in Anterior leads Confirmed by PIERRE SERNA, DR. Bose ([id number]) on 01/30/2018 3:41:45 PM Referred By: JOHN Confirmed By:DR. Lidya JAY MD
[2018-01-30 17:17] LABS: Hemoglobin 8.8 g/dL (14.0-18.0)
[2018-01-30 17:33] LABS: Potassium 4.4 mmol/L (3.5-5.1)
[2018-01-30 17:45] LABS: Actual Bicarbonate (HCO3a) 20.1 mEq/L (22-28); CO2 Tension 32.7 mmHg (35.0-45.0); Calcium, Ionized 0.99 mmol/L (1.12-1.30); Carboxyhemoglobin (COHb) 1.2 gm% (0.0-3.0); Hemoglobin (Hb) 9.1 g/dL (14.0-18.0); O2 Tension (PaO2) 155.4 mmHg (> 70.0); Potassium - ABG Lab 4.15 mmol/L (3.70-5.30); pH, Arterial 7.41 (7.35-7.45)
[2018-01-30] MEDS: Vancomycin HCl 1.5 GM in Sodium Chloride 0.9% 250 ML 300 ML IVPB SCH (18:00)
[2018-01-30 18:10] LABS: ALV-art Gradient 88.925 (0-20); Puncture Site ALINE
--- NOTE | 2018-01-30 18:31 | CON ---
DATE OF CONSULTATION: 01/30/2018 REASON FOR CONSULTATION: Post-CABG. HISTORY OF PRESENT ILLNESS: Mr. Page is a very pleasant 72-year-old - [place] gentleman, who came to the hospital for planned CABG. He had an angiogram last month that showed multivessel disease. He was treated medically initially, but he had repeat non-STEMI that required revascularization. We reviewed the films and decided to revascularize with a coronary artery bypass grafting. He had this done earlier today by Dr. Capps. He had a CONNELL to the LAD and vein to an OM, and a vein to a ramus. These were small arteries and not amenable for redo as there were so small. He did well postoperatively. He was seen earlier today. He was still intubated on both vasopressin and Levophed , maintaining a blood pressures and nurse was starting to wean him off and he was starting to wake up from anesthesia. PAST MEDICAL HISTORY: 1. Hypertension. 2. Rheumatoid arthritis. 3. Anxiety/depression. 4. Tobacco abuse. 5. Coronary artery disease. 6. Former tobacco user, quit recently. PAST SURGICAL HISTORY: 1. Tonsillectomy. 2. Knee surgery. 3. CABG x3 as above. OUTPATIENT MEDICATIONS: Include, 1. Prednisone 5 mg b.i.d. 2. Ranexa 500 mg b.i.d. 3. Lisinopril 5 mg a day. 4. Arava 20 mg b.i.d. 5. Hydrocodone p.r.n. 6. Plavix 75 mg a day. 7. Coreg 3.125 mg b.i.d. 8. Lipitor 40 mg a day. 9. Aspirin 325 a day. ALLERGIES: PENICILLIN. SOCIAL HISTORY: Former tobacco user, quit a few years ago. No alcohol use or drug use. FAMILY HISTORY: Noncontributory. REVIEW OF SYSTEMS: Unobtainable as the patient is sedated and intubated. PHYSICAL EXAMINATION: VITAL SIGNS: Temperature 97.7, pulse 90, respiratory rate 15, satting 100% on 50% FiO2, blood pressure 115/53. GENERAL: Sedated and intubated. LUNGS: Clear. CARDIOVASCULAR: S1 and S2. No S3 or S4. There is a 3 component rub from chest tubes. ABDOMEN: Soft, positive bowel sounds. EXTREMITIES: 1+ edema on the right leg. LABORATORY WORK: Reviewed. CBC with a white count of 12, hemoglobin 9.6, hematocrit of 30.5, platelet count 174. Coags with INR 1.5. ABG was reviewed. Chemistry was reviewed as well. BUN of 9, creatinine 0.65, GFR greater than 90, calcium was 7.5. Chest x-ray showed postoperative changes with pleural and parenchymal changes in the left base. No pneumothorax. Most recent echocardiogram was done on 01/16/2018, EF was 20% to 25% with grade I/III diastolic dysfunction with global hypokinesis. Aortic valve sclerosis, but opens well. ASSESSMENT AND PLAN: 1. Multivessel coronary artery disease, status post CABG x3 as above. 2. Ischemic cardiomyopathy, EF of 20% to 25%. He will need a LifeVest before discharge. 3. Rheumatoid arthritis 4. Tobacco use, recently ceased. PLAN: - Will need aspirin and statin for life - BB and ACEI once BP allows. - Wean pressors off. - Continue supportive care. Thank you for letting us participate in the care of your patient. We will follow. DOUGLAS
[2018-01-30] MEDS: Hydrocortisone Sod Succ/PF 100 mg/2 ml Vial IVP SCH (20:10)
[2018-01-30] MEDS ORDERED: Famotidine/PF 20 mg/2ml Vial SLOW IVP SCH (21:00)
[2018-01-30] MEDS: HYDROcodone/Acetaminophen 5/325 mg Tablet PO PRN (21:32)
[2018-01-30] MEDS: Ondansetron HCl/PF 4 MG/2 ML Vial IVP PRN (21:33)
[2018-01-31] MEDS: HYDROcodone/Acetaminophen 5/325 mg Tablet PO PRN ×4 (04:43→20:16)
[2018-01-31 04:46] LABS: #Lymphocytes 0.8 thou/uL (1.20-3.40); #Monocytes 1.1 thou/uL (0.11-0.59); #Neutrophils 9.6 thou/uL (1.40-6.50); %Basophils 0.2 % (0.0-1.0); %Eosinophils 0.1 % (0.0-10.0); %Lymphocytes 6.7 % (21.0-51.0); %Monocytes 9.6 % (0.0-10.0); %Neutrophils 83.4 % (42.0-75.0); Hemoglobin 8.3 g/dL (14.0-18.0); Mean Corpuscular HGB CONC 31.6 g/dL (32.0-36.0); Mean Corpuscular Hemoglobin 32.4 pg (27.0-31.0); Mean Platelet Volume 7.1 fL (7.4-10.4); Platelet Count 162 thou/uL (130-400); RBC Distribution Width 13.6 % (11.5-14.5); Red Blood Cell (RBC) Count 2.57 mill/uL (4.70-6.10); White Blood Cell (WBC) Count 11.6 thou/uL (4.8-10.8)
[2018-01-31 04:56] LABS: Anion Gap 9 mmol/L (10-20); BUN (Urea Nitrogen) 12 mg/dL (8.4-25.7); Calc. Creatinine Clearance 95 mL/min (70-130); Calcium 7.7 mg/dL (7.8-10.44); Carbon Dioxide 22 mmol/L (23-31); Chloride 112 mmol/L (98-107); Estimated GFR-MDRD Greater than 90; Glucose 125 mg/dL (83-110); Potassium 3.9 mmol/L (3.5-5.1); Sodium 139 mmol/L (136-145)
[2018-01-31] MEDS: Clindamycin/D5W 900 MG in Premix Bag 1 BAG IVPB SCH (06:30)
[2018-01-31] MEDS: Ketorolac Tromethamine 30 MG/ML VIAL IVP SCH ×4 (06:31→23:52)
[2018-01-31] MEDS: Vancomycin HCl 1.5 GM in Sodium Chloride 0.9% 250 ML 300 ML IVPB SCH (06:31)
[2018-01-31] MEDS: Potassium Chloride 20 MEQ/100 ML PREMIX BAG IVPB PRN (07:20)
--- NOTE | 2018-01-31 08:28 | RAD ---
SINGLE VIEW OF THE CHEST: COMPARISON: 01/30/18. HISTORY: Status post open heart surgery. FINDINGS: A single view of the chest shows an enlarged but stable cardiomediastinal silhouette. The patient is status post sternotomy. The endotracheal tube has been removed. The central venous catheter and le ft chest tube are unchanged in position. There may be a small left pleural effusion. IMPRESSION: Stable exam status post extubation. POS: [facility]
[2018-01-31] MEDS: Magnesium 2 GM/NS 0.9% 100 ML 2 GM in Premix Bag 1 BAG IVPB SCH (08:48)
[2018-01-31] MEDS: Hydrocortisone Sod Succ/PF 100 mg/2 ml Vial IVP SCH (08:48)
[2018-01-31] MEDS: Famotidine 20 MG TAB PO SCH ×2 (08:49→20:15)
[2018-01-31] MEDS ORDERED: Aspirin 325 MG TAB PO SCH (09:00)
[2018-01-31] MEDS: ALREX EA EYE SCH (17:30)
[2018-01-31] MEDS ORDERED: predniSONE 5 MG TAB PO SCH (18:00)
--- NOTE | 2018-01-31 18:07 | PDOC.CTH ---
Cardiology Progress Note - Subjective He was extubated yesterday. He is doing well. Off all pressors or innotropes. - Objective Vital Signs Temp Pulse Resp Pulse Ox 01/31/18 15:49 97.8 F 01/31/18 11:00 98.6 F 01/31/18 07:38 99 01/31/18 07:37 109 H 14 99 01/31/18 07:35 100 01/31/18 07:00 99.5 F Weight 167 lb 15.876 oz 01/30/18 01/31/18 02/01/18 06:59 06:59 06:59 Intake Total 2160 1450 Output Total 1330 505 Balance 830 945 - Physical Examination General/Neuro: alert & oriented x3, NAD Neck: carotid US brisk, no JVD present Lungs: CTA, unlabored respirations Heart: RRR, other: (2 component rub) Abdomen: NT/ND Extremities: + edema B (1+) - Telemetry Telemetry Rhythm: S tach - Labs Result Diagrams: 01/31/18 04:30 01/31/18 04:30 - Assessment/Plan 1. Multivessel CAD 2. S/P CABG x 3 3. Ischemic Dilated CM EF at 20-25% 4. RA 5. HTN 6. Tobacco abuse, recently quitted. PLAN: - Continue post operative care. - Aspirin and statin for life. - Will start BB. - ACEI once BP allows. - No apparent need for stress dose steroids at this time. - Continue to monitor.
[2018-01-31] MEDS ORDERED: Carvedilol 3.125 MG TAB PO SCH (19:30)
[2018-01-31] MEDS: Atorvastatin Calcium 40 MG TAB PO SCH (20:15)
[2018-01-31] MEDS ORDERED: Latanoprost 0.005% Ophth Soln 2.5 ml Bottle EA EYE SCH (21:00)
[2018-02-01 04:30] LABS: #Monocytes 1.3 thou/uL (0.11-0.59); %Eosinophils 0.1 % (0.0-10.0); %Lymphocytes 9.1 % (21.0-51.0); %Neutrophils 79.7 % (42.0-75.0); Hemoglobin 7.6 g/dL (14.0-18.0); Mean Corpuscular HGB CONC 31.3 g/dL (32.0-36.0); Mean Corpuscular Hemoglobin 32.3 pg (27.0-31.0); Mean Platelet Volume 7.3 fL (7.4-10.4); Platelet Count 151 thou/uL (130-400); RBC Distribution Width 13.9 % (11.5-14.5); Red Blood Cell (RBC) Count 2.36 mill/uL (4.70-6.10); White Blood Cell (WBC) Count 11.3 thou/uL (4.8-10.8)
[2018-02-01 04:53] LABS: Anion Gap 8 mmol/L (10-20); BUN (Urea Nitrogen) 18 mg/dL (8.4-25.7); Calc. Creatinine Clearance 91 mL/min (70-130); Calcium 8.3 mg/dL (7.8-10.44); Carbon Dioxide 24 mmol/L (23-31); Chloride 108 mmol/L (98-107); Estimated GFR-MDRD Greater than 90; Glucose 106 mg/dL (83-110); Potassium 4.1 mmol/L (3.5-5.1); Sodium 136 mmol/L (136-145)
[2018-02-01] MEDS: Ketorolac Tromethamine 30 MG/ML VIAL IVP SCH ×3 (05:08→17:10)
[2018-02-01] MEDS ORDERED: Mag-Al 1200 mg/1200 mg/30 ML UDCUP PO PRN (07:15)
[2018-02-01] MEDS ORDERED: Artificial Tears 18 DROP/0.9 ML EA EYE PRN (07:15)
[2018-02-01] MEDS ORDERED: Mineral Oil ENEMA PR PRN (07:15)
[2018-02-01] MEDS ORDERED: Bisacodyl 5 MG TAB PO PRN (07:15)
[2018-02-01] MEDS ORDERED: Bisacodyl 10 MG SUPP PR PRN (07:15)
[2018-02-01] MEDS ORDERED: Zolpidem Tartrate 5 MG TAB PO PRN (07:15)
[2018-02-01] MEDS ORDERED: Nitroglycerin 0.4 MG TAB (25 Tab Bottle) SL PRN (07:15)
[2018-02-01] MEDS ORDERED: diphenhydrAMINE 25 MG CAP PO PRN (07:15)
[2018-02-01] MEDS ORDERED: Guaifenesin DM 100-10/5 ML UDCUP PO PRN (07:15)
[2018-02-01] MEDS: Famotidine 20 MG TAB PO SCH ×2 (08:57→22:22)
[2018-02-01] MEDS: Potassium Chloride 10 MEQ TAB PO SCH (08:57)
[2018-02-01] MEDS: Carvedilol 3.125 MG TAB PO SCH ×2 (08:58→17:10)
[2018-02-01] MEDS: predniSONE 5 MG TAB PO SCH ×2 (08:58→22:22)
[2018-02-01] MEDS: Aspirin 325 mg Enteric Coated Tablet PO SCH (08:58)
[2018-02-01] MEDS: ALREX EA EYE SCH ×2 (08:59→22:23)
[2018-02-01] MEDS: Furosemide 40 MG TAB PO SCH (09:01)
[2018-02-01] MEDS: Magnesium 2 GM/NS 0.9% 100 ML 2 GM in Premix Bag 1 BAG IVPB SCH (09:05)
--- NOTE | 2018-02-01 09:27 | RAD ---
PORTABLE CHEST: HISTORY: Postop open heart surgery. COMPARISON: 01/31/18 exam. FINDINGS: Heart size is borderline. Postop sternotomy change. Right subclavian line remains in place. Atelec tatic changes are seen in the lung bases. Some blunting to the costophrenic angles is present. The left chest tube has been removed. No pneumothorax. IMPRESSION: Interval removal of the left side chest tube; otherwise, essentially stable chest. POS: [facility]
[2018-02-01] MEDS: Ondansetron HCl/PF 4 MG/2 ML Vial IVP PRN ×3 (10:56→22:23)
--- NOTE | 2018-02-01 11:05 | CON ---
DATE OF CONSULTATION: 02/01/2018 HISTORY: He is a 72-year-old gentleman, former smoker who is in the ICU post coronary artery bypass graft, the reason for consultation. He smoked in the past many years ago. He denies any prior history of TB, pneumonia or bronchial asth ma. He worked at [employer] for a period of time, and had asbestos exposure and did get some compensation for that. He had an angiogram done several weeks ago which showed multivessel disease. He underwent bypass by Dr. Capps. He is off the vent. PAST MEDICAL HISTORY: Pertinent for previous tobacco abuse, coronary artery disease, anxiety, arthri tis, hypertension. PAST SURGICAL HISTORY: Tonsils, knee, CABG. MEDICATIONS: His chronic medication from home includes Coreg 3.125, Plavix 75, aspirin 81, Lipitor 8 0, prednisone 5, Ranexa 500, lisinopril 5, ISMO 30. ALLERGIES: PENICILLIN. SOCIAL HISTORY: As noted, former tobacco. Alcohol none. REVIEW OF SYSTEMS: Ten point negative. PHYSICAL EXAMINATION: VITAL SIGNS: Sats are 95 on room air, blood pressure 104/80, pulse 80, respirations 18, he is afebri le. CHEST: Minimal crackles, without any wheezing. CARDIAC: Normal S1, S2, no gallops. ABDOMEN: Soft, no masses. LABORATORY DATA: White count 11,000, H&H 7.6 and 24, platelet count 51. Electrolytes are normal. His chest x-ray shows cardiomegaly, status post CABG, minimal pleural disease. IMPRESSION: 1. Status post coronary artery bypass graft. 2. History of asbestos exposure. 3. Former smoker. 4. Cardiomyopathy. 5. Arthritis, rheumatoid. PLAN: Pulmonary-stephenson he is stable. We will follow while in the ICU.
[2018-02-01] MEDS: Dorzolamide HCl 2% Ophth Soln 10 ml Bottle R EYE SCH ×2 (12:22→16:08)
[2018-02-01] MEDS ORDERED: Latanoprost 0.005% Ophth Soln 2.5 ml Bottle EA EYE SCH (16:00)
--- NOTE | 2018-02-01 17:01 | PDOC.CTH ---
Cardiology Progress Note - Subjective He had his chest tubes taken out. His only complaint is upset stomach. He had a large BM earlier today . - Objective Vital Signs Temp Pulse Pulse Pulse Resp BP BP 02/01/18 16:00 98.4 F 105 H 18 02/01/18 13:42 100 12 02/01/18 11:06 98.1 F 104 H 18 02/01/18 10:00 98.3 F 103 H 16 02/01/18 08:37 117 H 117 H 126/60 136/72 02/01/18 08:00 98.4 F 02/01/18 07:34 02/01/18 06:05 112 H 14 BP Pulse Ox Pulse Ox Pulse Ox 02/01/18 16:00 128/69 97 02/01/18 13:42 02/01/18 11:06 113/57 L 96 02/01/18 10:00 149/70 H 95 02/01/18 08:37 98 100 02/01/18 08:00 02/01/18 07:34 99 02/01/18 06:05 99 Weight 168 lb 6.931 oz 01/31/18 02/01/18 02/02/18 06:59 06:59 06:59 Intake Total 2160 1790 240 Output Total 9980 400 4345 Balance 830 900 -1555 - Physical Examination General/Neuro: alert & oriented x3, NAD Neck: no JVD present Lungs: unlabored respirations Heart: RRR Abdomen: NT/ND Extremities: + edema B (1+) - Telemetry Telemetry Rhythm: Sinus tach - Labs Result Diagrams: 02/01/18 04:15 02/01/18 04:15 - Assessment/Plan 1. Multivessel CAD 2. S/P CABG x 3 3. Ischemic Dilated CM EF at 20-25% 4. RA 5. HTN 6. Tobacco abuse, recently quitted. PLAN: - Continue post operative care. - Aspirin and statin for life. - On BB. - ACEI tomorrow. - No apparent need for stress dose steroids for now. - Continue to monitor.
[2018-02-01] MEDS: Metoclopramide HCl 10 MG/2 ML VIAL IVP SCH (18:09)
[2018-02-01] MEDS: Atorvastatin Calcium 40 MG TAB PO SCH (22:22)
[2018-02-02] MEDS: Ketorolac Tromethamine 30 MG/ML VIAL IVP SCH ×3 (00:08→12:19)
[2018-02-02] MEDS: Metoclopramide HCl 10 MG/2 ML VIAL IVP SCH ×5 (00:09→23:36)
[2018-02-02] MEDS: Ondansetron HCl/PF 4 MG/2 ML Vial IVP PRN ×2 (04:34→15:29)
[2018-02-02 06:05] LABS: #Lymphocytes 0.9 thou/uL (1.20-3.40); #Monocytes 1.2 thou/uL (0.11-0.59); #Neutrophils 8.9 thou/uL (1.40-6.50); %Basophils 0.1 % (0.0-1.0); %Eosinophils 0.2 % (0.0-10.0); %Lymphocytes 8.1 % (21.0-51.0); %Monocytes 10.8 % (0.0-10.0); %Neutrophils 80.8 % (42.0-75.0); Hemoglobin 9.4 g/dL (14.0-18.0); Mean Corpuscular Hemoglobin 32.9 pg (27.0-31.0); Mean Platelet Volume 7.5 fL (7.4-10.4); Platelet Count 203 thou/uL (130-400); RBC Distribution Width 13.6 % (11.5-14.5); Red Blood Cell (RBC) Count 2.85 mill/uL (4.70-6.10)
[2018-02-02] MEDS: Promethazine HCl 25 MG/ML VIAL IM PRN (08:10)
[2018-02-02] MEDS: Lactated Ringer's 1,000 ML IV SCH ×2 (10:38→18:04)
[2018-02-02] MEDS: Dorzolamide HCl 2% Ophth Soln 10 ml Bottle R EYE SCH (10:40)
[2018-02-02] MEDS: Potassium Chloride 10 MEQ TAB PO SCH (10:41)
[2018-02-02] MEDS: ALREX EA EYE SCH ×2 (10:41→20:21)
[2018-02-02] MEDS: Furosemide 40 MG TAB PO SCH (10:41)
[2018-02-02] MEDS: Carvedilol 6.25 MG TAB PO SCH ×2 (10:41→17:26)
[2018-02-02] MEDS: Famotidine 20 MG TAB PO SCH ×2 (10:42→20:21)
[2018-02-02] MEDS: Aspirin 325 mg Enteric Coated Tablet PO SCH (10:42)
[2018-02-02] MEDS: predniSONE 5 MG TAB PO SCH ×2 (10:42→20:21)
[2018-02-02] MEDS: Latanoprost 0.005% Ophth Soln 2.5 ml Bottle EA EYE SCH (10:43)
--- NOTE | 2018-02-02 18:30 | PDOC.CTH ---
Cardiology Progress Note - Subjective Ghe has been walking around with CR and feels worn out afterwards. - Objective Vital Signs Temp Pulse Resp BP BP BP Pulse Ox 02/02/18 17:26 157/74 H 02/02/18 16:00 95 02/02/18 15:20 97.8 F 115 H 18 157/74 H 95 02/02/18 13:58 109 H 16 02/02/18 12:20 109 H 18 154/73 H 02/02/18 10:41 147/67 H 02/02/18 07:52 98.6 F 112 H 16 147/67 H Weight 162 lb 02/01/18 02/02/18 02/03/18 06:59 06:59 06:59 Intake Total 1790 840 Output Total 890 3595 Balance 900 -0605 - Physical Examination General/Neuro: alert & oriented x3, NAD Neck: no JVD present Lungs: CTA, unlabored respirations Heart: RRR Abdomen: NT/ND Extremities: + edema B (1+) - Telemetry Telemetry Rhythm: NSR - Labs Result Diagrams: 02/02/18 05:21 02/01/18 04:15 - Assessment/Plan 1. Multivessel CAD 2. S/P CABG x 3 3. Ischemic Dilated CM EF at 20-25% 4. RA 5. HTN 6. Tobacco abuse, recently quitted. PLAN: - Continue post operative care. - Aspirin and statin for life. - On BB. - Will add ACEI today. - Continue to increase PT as tolerated.
[2018-02-02] MEDS: Atorvastatin Calcium 40 MG TAB PO SCH (20:21)
--- NOTE | 2018-02-02 23:08 | DIS ---
DATE OF ADMISSION: 01/30/2018 DATE OF DISCHARGE: 02/02/2018 DIAGNOSES: 1. Coronary artery disease. 2. Rheumatoid arthritis. 3. Previous tobacco abuse. 4. Anxiety. 5. Hypertension. 6. Hyperlipidemia. PROCEDURES: Coronary artery bypass grafting x3: 1. Left internal mammary artery to LAD. 2. Reversed saphenous vein to ramus. 3. Reversed saphenous vein to OM. DESCRIPTION OF HOSPITAL STAY: Mr. Page was admitted for elective bypass as above. He has done wel l. He has had no rhythm disturbances. He is being discharged to home in good condition to follow up with me in [address] Bustamante in a month. DISCHARGE MEDICATIONS: Include, 1. Aspirin 81 mg daily. 2. Plavix 75 mg daily. 3. Prednisone 5 mg b.i.d. 4. Lipitor 40 mg daily. 5. Coreg 6.25 mg b.i.d. 6. Lisinopril 5 mg daily. 7. [place] 5/325, 1-2 q.6 hours p.r.n. pain.
[2018-02-03] MEDS: Promethazine HCl 25 MG/ML VIAL IM PRN (04:39)
[2018-02-03] MEDS: Metoclopramide HCl 10 MG/2 ML VIAL IVP SCH ×3 (05:30→18:17)
[2018-02-03] MEDS: Dorzolamide HCl 2% Ophth Soln 10 ml Bottle R EYE SCH (08:21)
[2018-02-03] MEDS: Latanoprost 0.005% Ophth Soln 2.5 ml Bottle EA EYE SCH (08:22)
[2018-02-03] MEDS: Furosemide 40 MG TAB PO SCH (08:23)
[2018-02-03] MEDS: Potassium Chloride 10 MEQ TAB PO SCH (08:23)
[2018-02-03] MEDS: Carvedilol 6.25 MG TAB PO SCH ×2 (08:23→18:17)
[2018-02-03] MEDS: ALREX EA EYE SCH ×2 (08:23→20:53)
[2018-02-03] MEDS: Famotidine 20 MG TAB PO SCH ×2 (08:24→20:52)
[2018-02-03] MEDS: Lisinopril 5 MG TAB PO SCH (08:24)
[2018-02-03] MEDS: predniSONE 5 MG TAB PO SCH ×2 (08:24→20:52)
[2018-02-03] MEDS: Aspirin 325 mg Enteric Coated Tablet PO SCH (08:24)
--- NOTE | 2018-02-03 16:05 | PDOC.CTH ---
Cardiology Progress Note - Subjective He is feeling better today. Had another 2 large BM's today. - Objective Vital Signs Temp Pulse Pulse Pulse Resp BP BP 02/03/18 14:33 98 16 02/03/18 12:19 132 H 120 H 111/56 L 02/03/18 11:40 109 H 18 02/03/18 08:24 118 H 02/03/18 08:23 153/74 H 02/03/18 07:22 118 H 16 02/03/18 06:47 96.5 F L 115 H 16 BP BP 02/03/18 14:33 02/03/18 12:19 130/63 02/03/18 11:40 116/58 L 02/03/18 08:24 02/03/18 08:23 02/03/18 07:22 02/03/18 06:47 153/74 H Weight 154 lb 1.6 oz 02/02/18 02/03/18 02/04/18 06:59 06:59 06:59 Intake Total 840 1275 Output Total 3595 1150 Balance -2755 125 - Physical Examination General/Neuro: alert & oriented x3, NAD Neck: no JVD present Lungs: CTA, unlabored respirations Heart: RRR Abdomen: NT/ND Extremities: + edema B (1+) - Telemetry Telemetry Rhythm: NSR - Labs Result Diagrams: 02/02/18 05:21 02/01/18 04:15 - Assessment/Plan 1. Multivessel CAD 2. S/P CABG x 3 3. Ischemic Dilated CM EF at 20-25% 4. RA 5. HTN 6. Tobacco abuse, recently quitted. PLAN: - Continue post operative care. - Aspirin and statin for life. - On BB and ACEI. - Continue to increase PT as tolerated.
[2018-02-03] MEDS: Atorvastatin Calcium 40 MG TAB PO SCH (20:52)
[2018-02-04] MEDS: Metoclopramide HCl 10 MG/2 ML VIAL IVP SCH ×5 (00:40→23:27)
[2018-02-04 06:11] LABS: Anion Gap 12 mmol/L (10-20); BUN (Urea Nitrogen) 9 mg/dL (8.4-25.7); Calc. Creatinine Clearance 83 mL/min (70-130); Calcium 8.8 mg/dL (7.8-10.44); Carbon Dioxide 29 mmol/L (23-31); Chloride 102 mmol/L (98-107); Estimated GFR-MDRD Greater than 90; Glucose 102 mg/dL (83-110); Potassium 3.4 mmol/L (3.5-5.1); Sodium 140 mmol/L (136-145)
[2018-02-04] MEDS: Potassium Chloride 10 MEQ TAB PO SCH (08:33)
[2018-02-04] MEDS: Aspirin 325 mg Enteric Coated Tablet PO SCH (08:33)
[2018-02-04] MEDS: Lisinopril 5 MG TAB PO SCH (08:33)
[2018-02-04] MEDS: Furosemide 40 MG TAB PO SCH (08:33)
[2018-02-04] MEDS: Carvedilol 6.25 MG TAB PO SCH ×2 (08:33→17:05)
[2018-02-04] MEDS: ALREX EA EYE SCH ×2 (08:34→20:12)
[2018-02-04] MEDS: Famotidine 20 MG TAB PO SCH ×2 (08:34→20:12)
[2018-02-04] MEDS: predniSONE 5 MG TAB PO SCH ×2 (08:34→20:12)
[2018-02-04] MEDS: Latanoprost 0.005% Ophth Soln 2.5 ml Bottle EA EYE SCH (08:35)
[2018-02-04] MEDS: Dorzolamide HCl 2% Ophth Soln 10 ml Bottle R EYE SCH (08:35)
--- NOTE | 2018-02-04 18:26 | PDOC.CTH ---
Cardiology Progress Note - Subjective No new issues. He has been walking with PT and has done well. - Objective Vital Signs Temp Pulse Pulse Pulse Resp BP BP 02/04/18 16:27 117 H 111 H 116/57 L 02/04/18 16:00 98.9 F 114 H 16 02/04/18 13:33 96 12 02/04/18 12:33 130 H 117 H 106/63 02/04/18 12:00 98.4 F 111 H 18 02/04/18 08:33 112 H 144/64 H 02/04/18 07:58 98.8 F 112 H 18 02/04/18 06:49 105 H 12 BP BP BP Pulse Ox 02/04/18 16:27 115/57 L 02/04/18 16:00 114/57 L 97 02/04/18 13:33 02/04/18 12:33 116/60 02/04/18 12:00 115/57 L 96 02/04/18 08:33 02/04/18 07:58 144/64 H 96 02/04/18 06:49 Weight 146 lb 11.2 oz 02/03/18 02/04/18 02/05/18 06:59 06:59 06:59 Intake Total 1275 550 Output Total 1150 2075 Balance 125 -1525 - Physical Examination General/Neuro: alert & oriented x3, NAD Neck: no JVD present Lungs: CTA, unlabored respirations Heart: RRR Abdomen: NT/ND Extremities: other: (no edema.) - Telemetry Telemetry Rhythm: NSR - Labs Result Diagrams: 02/02/18 05:21 02/04/18 04:50 - Assessment/Plan 1. Multivessel CAD 2. S/P CABG x 3 3. Ischemic Dilated CM EF at 20-25% 4. RA 5. HTN 6. Tobacco abuse, quit recently. PLAN: - Aspirin and statin for life. - On BB and ACEI. - Continue to increase PT as tolerated. - Will up titrate BB today see if we can make his HR a little better. - Replace Samira
[2018-02-04] MEDS ORDERED: Potassium Chloride 20 MEQ TAB PO SCH (18:45)
[2018-02-04] MEDS: Atorvastatin Calcium 40 MG TAB PO SCH (20:11)
[2018-02-04] MEDS: HYDROcodone/Acetaminophen 5/325 mg Tablet PO PRN (22:07)
[2018-02-05] MEDS: HYDROcodone/Acetaminophen 5/325 mg Tablet PO PRN ×3 (04:01→17:27)
[2018-02-05] MEDS: Metoclopramide HCl 10 MG/2 ML VIAL IVP SCH ×3 (05:30→17:16)
[2018-02-05] MEDS ORDERED: Carvedilol 6.25 MG TAB PO SCH ×2 (08:00→17:00)
[2018-02-05] MEDS: Aspirin 325 mg Enteric Coated Tablet PO SCH (08:44)
[2018-02-05] MEDS: Potassium Chloride 10 MEQ TAB PO SCH (08:44)
[2018-02-05] MEDS: Furosemide 40 MG TAB PO SCH (08:45)
[2018-02-05] MEDS: Famotidine 20 MG TAB PO SCH ×2 (08:45→21:36)
[2018-02-05] MEDS: ALREX EA EYE SCH ×2 (08:46→21:40)
[2018-02-05] MEDS: Lisinopril 5 MG TAB PO SCH (08:46)
[2018-02-05] MEDS: predniSONE 5 MG TAB PO SCH ×2 (08:46→21:35)
[2018-02-05] MEDS: Dorzolamide HCl 2% Ophth Soln 10 ml Bottle R EYE SCH (08:51)
[2018-02-05] MEDS: Latanoprost 0.005% Ophth Soln 2.5 ml Bottle EA EYE SCH (08:55)
--- NOTE | 2018-02-05 16:03 | PDOC.CTH ---
Cardiology Progress Note - Subjective Having BM's. Walks around with PT and did well. - Objective Vital Signs Temp Pulse Pulse Pulse Resp BP BP 02/05/18 13:31 100 16 02/05/18 11:39 97.9 F 95 18 02/05/18 09:08 110 H 110 H 120/59 L 94/53 L 02/05/18 07:47 98 F 102 H 18 02/05/18 07:29 104 H 16 02/05/18 04:09 98.3 F 105 H 14 BP BP Pulse Ox 02/05/18 13:31 97 02/05/18 11:39 96/53 L 95 02/05/18 09:08 02/05/18 07:47 113/55 L 99 02/05/18 07:29 100 02/05/18 04:09 110/61 95 Weight 144 lb 6.4 oz 02/04/18 02/05/18 02/06/18 06:59 06:59 06:59 Intake Total 550 1080 Output Total 2075 1150 Balance -1525 -70 - Physical Examination General/Neuro: alert & oriented x3, NAD Neck: no JVD present Lungs: CTA, unlabored respirations Heart: RRR Abdomen: NT/ND Extremities: + edema B - Telemetry Telemetry Rhythm: NSR - Labs Result Diagrams: 02/02/18 05:21 02/04/18 04:50 - Assessment/Plan 1. Multivessel CAD 2. S/P CABG x 3 3. Ischemic Dilated CM EF at 20-25% 4. RA 5. HTN 6. Tobacco abuse, quit recently. PLAN: - Aspirin and statin for life. - On BB and ACEI. - Continue to increase PT as tolerated. - Will up titrate BB today see if we can make his HR a little better. - BP borderline low. Will cut back on ACEI. - Home any time from cardiac perspective.
[2018-02-05] MEDS: Carvedilol 6.25 MG TAB PO SCH (17:16)
[2018-02-05] MEDS: Atorvastatin Calcium 40 MG TAB PO SCH (21:35)
[2018-02-06] MEDS: Metoclopramide HCl 10 MG/2 ML VIAL IVP SCH ×3 (00:08→11:59)
[2018-02-06] MEDS: HYDROcodone/Acetaminophen 5/325 mg Tablet PO PRN ×2 (06:23→13:40)
[2018-02-06] MEDS: Dorzolamide HCl 2% Ophth Soln 10 ml Bottle R EYE SCH (08:32)
[2018-02-06] MEDS: ALREX EA EYE SCH (08:33)
[2018-02-06] MEDS: Latanoprost 0.005% Ophth Soln 2.5 ml Bottle EA EYE SCH (08:34)
[2018-02-06] MEDS: Aspirin 325 mg Enteric Coated Tablet PO SCH (08:35)
[2018-02-06] MEDS: Potassium Chloride 10 MEQ TAB PO SCH (08:35)
[2018-02-06] MEDS: predniSONE 5 MG TAB PO SCH (08:35)
[2018-02-06] MEDS: Carvedilol 6.25 MG TAB PO SCH (08:36)
[2018-02-06] MEDS: Famotidine 20 MG TAB PO SCH (08:36)
[2018-02-06] MEDS: Furosemide 40 MG TAB PO SCH (08:36)
[2018-02-06] MEDS ORDERED: Lisinopril 2.5 MG TAB PO SCH (09:00)
[2018-02-06 13:15] VITALS: BP 122/58; TEMP 97.4
[2018-02-07 10:12] LABS: Actual Bicarbonate (HCO3a) 25.4 mEq/L (22-28); Analyzer IN Cardio OR; Base Excess (BEa) -0.5 mEq/L (-2.0 to +3.0); CO2 Tension 48.2 mmHg (35.0-45.0); Calcium, Ionized 1.02 mmol/L (1.12-1.30); Carboxyhemoglobin (COHb) 1.3 gm% (0.0-3.0); Hemoglobin (Hb) 7.1 g/dL (14.0-18.0); Potassium - ABG Lab 4.22 mmol/L (3.70-5.30); pH, Arterial 7.34 (7.35-7.45)
[2018-02-07 10:12] LABS: Analyzer IN Cardio OR; Base Excess (BEa) -2.2 mEq/L (-2.0 to +3.0); CO2 Tension 41.7 mmHg (35.0-45.0); Calcium, Ionized 0.96 mmol/L (1.12-1.30); Carboxyhemoglobin (COHb) 1.4 gm% (0.0-3.0); Hemoglobin (Hb) 6.6 g/dL (14.0-18.0); Potassium - ABG Lab 4.29 mmol/L (3.70-5.30); pH, Arterial 7.36 (7.35-7.45)
[2018-02-07 10:12] LABS: Actual Bicarbonate (HCO3a) 20.9 mEq/L (22-28); Analyzer IN Cardio OR; Base Excess (BEa) -2.7 mEq/L (-2.0 to +3.0); CO2 Tension 30.1 mmHg (35.0-45.0); Calcium, Ionized 1.12 mmol/L (1.12-1.30); Carboxyhemoglobin (COHb) 1.1 gm% (0.0-3.0); Hemoglobin (Hb) 6.2 g/dL (14.0-18.0); O2 Tension (PaO2) 485.5 mmHg (> 70.0); Potassium - ABG Lab 3.83 mmol/L (3.70-5.30); pH, Arterial 7.46 (7.35-7.45)
[2018-02-07 10:13] LABS: Actual Bicarbonate (HCO3a) 22.9 mEq/L (22-28); Analyzer IN Cardio OR; Base Excess (BEa) 1.8 mEq/L (-2.0 to +3.0); Calcium, Ionized 1.02 mmol/L (1.12-1.30); Carboxyhemoglobin (COHb) 0.7 gm% (0.0-3.0); Hemoglobin (Hb) 11.2 g/dL (14.0-18.0); O2 Tension (PaO2) 467.7 mmHg (> 70.0); Potassium - ABG Lab 3.57 mmol/L (3.70-5.30)
[2018-02-07 10:13] LABS: Actual Bicarbonate (HCO3a) 21.9 mEq/L (22-28); Analyzer IN Cardio OR; Base Excess (BEa) 0.1 mEq/L (-2.0 to +3.0); CO2 Tension 26.6 mmHg (35.0-45.0); Calcium, Ionized 1.04 mmol/L (1.12-1.30); Carboxyhemoglobin (COHb) 0.7 gm% (0.0-3.0); Hemoglobin (Hb) 10.5 g/dL (14.0-18.0); O2 Tension (PaO2) 479.6 mmHg (> 70.0); Potassium - ABG Lab 3.27 mmol/L (3.70-5.30); pH, Arterial 7.53 (7.35-7.45)
[2018-02-07 10:13] LABS: Actual Bicarbonate (HCO3v) 23 mEq/L (22-28); Analyzer IN Cardio OR; Base Excess -2.4 mEq/L (-2.0 to +3.0); Calcium, Ionized 1.03 mmol/L (1.16-1.32); Chloride (ABG LAB) 107 mmol/L (98-106); Hemoglobin (Hb) 7.1 g/dL (12.6-17.4); Potassium - ABG Lab 4.28 mmol/L (3.70-5.30); Sodium 134.3 mmol/L (133-146); pH (venous) 7.33 (7.32-7.43)
[2018-02-07 10:14] LABS: Puncture Site ALINE
[2018-02-07 10:16] LABS: CO2 Tension 25.8 mmHg (35.0-45.0); Puncture Site ALINE; pH, Arterial 7.57 (7.35-7.45)
[2018-02-07 10:17] LABS: Puncture Site ALINE
[2018-02-07 10:17] LABS: Puncture Site ALINE
[2018-02-07 10:18] LABS: Puncture Site ALINE
== END 2018-02-06 15:10 | disposition home or self-care (01) | DRG 236 ==
LOC: SURG A 01-30 05:38 → CCU 01-30 09:07 → 2NO 02-01 09:51
PROVIDERS: ADMIT Thoracic Surgery (Cardiothoracic Vascular Surgery); ATTEND Thoracic Surgery (Cardiothoracic Vascular Surgery)
PROC: 02100Z9 Bypass Coronary Artery, One Artery from Left Internal Mammary, Open Approach (ICD-10-PCS; principal; 2018-01-30)
PROC: 0211093 Bypass Coronary Artery, Two Arteries from Coronary Artery with Autologous Venous Tissue, Open Approach (ICD-10-PCS; 2018-01-30)
DX: I25.118 Atherosclerotic heart disease of native coronary artery with other forms of angina pectoris (principal); I50.1 Left ventricular failure, unspecified; M06.9 Rheumatoid arthritis, unspecified; I25.5 Ischemic cardiomyopathy; Z87.891 Personal history of nicotine dependence; E78.5 Hyperlipidemia, unspecified; Z79.899 Other long term (current) drug therapy; Z79.02 Long term (current) use of antithrombotics/antiplatelets; Z79.82 Long term (current) use of aspirin; Z88.0 Allergy status to penicillin; Z77.090 Contact with and (suspected) exposure to asbestos; I11.0 Hypertensive heart disease with heart failure
CPT/HCPCS: 36415; 36416; 36430; 71045; 80048; 82150; 82805; 83690; 85025; 85610; 85730; 86850; 86900; 86901; 93005; 93010; 93798; 94002; 94150; 94640; J1642; J1644; J1720; J1815; J1885; J2001; J2150; J2250; J2260; J2405; J2440; J2550; J2704; J2720; J2765; J3010; J3370; J3475; J3480; J3490; J7050; J7620; P9045; S0017; S0028

== ENCOUNTER 2018-01-29 13:18 | Outpatient (CLI) | payer MEDICARE, BC | END 2018-01-29 13:19 | disposition home or self-care (01) | LOC: LABBT 13:18 | PROVIDERS: ATTEND Thoracic Surgery (Cardiothoracic Vascular Surgery) | DX: Z01.812 Encounter for preprocedural laboratory examination (principal); I25.10 Atherosclerotic heart disease of native coronary artery without angina pectoris; Z53.9 Procedure and treatment not carried out, unspecified reason | CPT/HCPCS: 86850; 86900; 86901 ==

== ENCOUNTER 2018-02-23 09:18 | Inpatient (IN) | payer MEDICARE, BC ==
[2018-02-23] MEDS ORDERED: ISOVUE-370 76%-LOCM 1 ML ONE (09:45)
[2018-02-23 10:02] LABS: %Monocytes 7.9 % (0.0-10.0); %Neutrophils 68.8 % (42.0-75.0); Hemoglobin 10.1 g/dL (14.0-18.0); Mean Corpuscular HGB CONC 29.9 g/dL (32.0-36.0); Mean Corpuscular Hemoglobin 31.6 pg (27.0-31.0); Mean Platelet Volume 6.3 fL (7.4-10.4); Platelet Count 379 thou/uL (130-400); RBC Distribution Width 14.2 % (11.5-14.5); White Blood Cell (WBC) Count 7.2 thou/uL (4.8-10.8)
[2018-02-23 10:03] LABS: #Eosinphils 0.1 thou/uL (0.0-0.7); #Lymphocytes 1.5 thou/uL (1.20-3.40); #Monocytes 0.6 thou/uL (0.11-0.59); %Basophils 0.3 % (0.0-1.0)
[2018-02-23 10:08] LABS: PTT 24.7 SEC (22.9-36.1); Prothrombin Time 13.7 SEC (12.0-14.7)
--- NOTE | 2018-02-23 10:09 | RAD ---
CHEST ONE VIEW: HISTORY: Dyspnea. COMPARISON: Chest radiograph from 02/01/2018. FINDINGS: An external monitoring device is noted, which limits evaluation of the underlying lung parenchyma. M ild edema. Heart size is enlarged. No pneumothorax. IMPRESSION: Mild edema and likely some small pleural effusions. POS: [facility]
[2018-02-23 10:17] LABS: ALT (SGPT) 17 U/L (8-55); AST (SGOT) 28 U/L (5-34); Albumin 3.6 g/dL (3.4-4.8); Alkaline Phosphatase 89 U/L (40-150); Anion Gap 14 mmol/L (10-20); BUN (Urea Nitrogen) 12 mg/dL (8.4-25.7); Bilirubin, Total 0.7 mg/dL (0.2-1.2); Calc. Creatinine Clearance 0 mL/min (70-130); Calcium 8.8 mg/dL (7.8-10.44); Carbon Dioxide 23 mmol/L (23-31); Chloride 107 mmol/L (98-107); Estimated GFR-MDRD Greater than 90; Globulin 2.7 g/dL (2.4-3.5); Glucose 198 mg/dL (83-110); Potassium 3.6 mmol/L (3.5-5.1); Protein, Total 6.3 g/dL (5.8-8.1); Sodium 140 mmol/L (136-145)
[2018-02-23 10:24] LABS: D-Dimer Test Greater than 20.00 *mcg/mL (0.27-0.43)
[2018-02-23 10:30] LABS: CKMB 7.5 ng/mL (0-6.6); Troponin I 1.972 ng/mL (< 0.028)
--- NOTE | 2018-02-23 12:01 | PDOC.FPRHP ---
Addendum entered and electronically signed by Silverio Venegas MD 02/23/18 12:54: PMH: htn, ra, depression, tobacco abuse, CAD PSH: CABG 3V, 2 weeks ago social: former smoker, quit many years ago, does not remember when, no alcohol/ drugs Fam Hx: HTN CTA is negative Original Note: - History of Present Illness Chief Complaint: sob History of Present Illness: This patient is 2 weeks s/p CABG with Dr. Capps here at [facility]. Comes in with shortness of breath that started yesterday. EMS reports tachycardia. Patient denies any pain whatsoever. Patient states his exercise tolerance has decreased , he states he could not walk to the door of the room without being weak and shortness of breath. He states swelling in his feet is new and he was not really aware of it. ED Course: duoneb - Allergies/Adverse Reactions Allergies Allergy/AdvReac Type Severity Reaction Status Date / Time Penicillins Allergy Verified 02/23/18 16:30 - Home Medications Medication Instructions Recorded Confirmed Type predniSONE [Prednisone] 5 mg PO BID 12/21/17 02/23/18 History Atorvastatin Calcium [Lipitor] 40 mg PO DAILY #90 tab 12/26/17 02/23/18 Rx Clopidogrel Bisulfate [Plavix] 75 mg PO DAILY #90 tab 12/26/17 02/23/18 Rx Aspirin [Aspir-Low] 81 mg PO DAILY 01/29/18 02/23/18 History Carvedilol [Coreg] 6.25 mg PO BID-WM #60 tab 02/02/18 02/23/18 Rx HYDROcodone Bit/APAP 5/325 [[place]] 1 tab PO Q4H PRN tab 02/02/18 02/23/18 Rx HYDROcodone Bit/APAP 5/325 [[place]] 2 tab PO Q4H PRN tab 02/02/18 02/23/18 Rx Lisinopril [Zestril] 2.5 mg PO DAILY #30 tab 02/06/18 02/23/18 Rx - History PMHx: PSHx: FHx: Social: - Review of Systems General: denies: fever/chills, fatigue ENT: denies: nasal congestion, rhinorrhea Respiratory: reports: shortness of breath. denies: cough Cardiovascular: denies: chest pain, palpitation Gastrointestinal: denies: nausea, vomiting, diarrhea, GI bleeding Genitourinary: denies: incontinence, dysuria Skin: denies: rashes, jaundice Musculoskeletal: denies: pain, arthritis/arthralgias Neurological: denies: numbness, weakness - Vital signs BP: 137/98 HR: 124 RR: 22 Tmax: 97.7 Pox: 98% on 4L Wt: 79kg - Physical Exam Constitutional: NAD, awake, alert and oriented HEENT: normocephalic and atraumatic, PERRLA Heart: RRR, normal S1/S2 -Heart: +1 edema at the ankles bilaterally Lungs: no respiratory distress, good air movement -Lungs: decreased breath sounds at the bases bilaterally Abdomen: soft, non-tender, bowel sounds present Musculoskeletal: normal structure, ROM grossly normal Neurological: no focal deficit, normal sensation Skin: no rash/lesions, capillary refill <2 seconds FMR H&P: Results - Labs Result Diagrams: 02/23/18 09:43 02/23/18 09:43 Lab results: WBC 7.2 thou/uL (4.8-10.8) 02/23/18 09:43 Hgb 10.1 g/dL (14.0-18.0) L 02/23/18 09:43 Hct 33.9 % (42.0-52.0) L 02/23/18 09:43 MCV 106.0 fL (78.0-98.0) H 02/23/18 09:43 Plt Count 379 thou/uL (130-400) 02/23/18 09:43 Neutrophils % 68.8 % (42.0-75.0) 02/23/18 09:43 Sodium 140 mmol/L (136-145) 02/23/18 09:43 Potassium 3.6 mmol/L (3.5-5.1) 02/23/18 09:43 Chloride 107 mmol/L (98-107) 02/23/18 09:43 Carbon Dioxide 23 mmol/L (23-31) 02/23/18 09:43 BUN 12 mg/dL (8.4-25.7) 02/23/18 09:43 Creatinine 0.82 mg/dL (0.6-1.3) 02/23/18 09:43 Glucose 198 mg/dL (83-110) H 02/23/18 09:43 Lactic Acid 3.5 mmol/L (0.5-2.2) H 02/23/18 09:43 Calcium 8.8 mg/dL (7.8-10.44) 02/23/18 09:43 Total Bilirubin 0.7 mg/dL (0.2-1.2) 02/23/18 09:43 AST 28 U/L (5-34) 02/23/18 09:43 ALT 17 U/L (8-55) 02/23/18 09:43 Alkaline Phosphatase 89 U/L (40-150) 02/23/18 09:43 CK-MB (CK-2) 7.5 ng/mL (0-6.6) H* 02/23/18 09:43 B-Natriuretic Peptide 1142.5 pg/mL (0-100) H 02/23/18 09:43 Serum Total Protein 6.3 g/dL (5.8-8.1) 02/23/18 09:43 Albumin 3.6 g/dL (3.4-4.8) 02/23/18 09:43 FMR H&P: A/P - Problem List (1) Acute respiratory failure with hypoxia and hypercapnia Current Visit: No Status: Acute Code(s): J96.01 - ACUTE RESPIRATORY FAILURE WITH HYPOXIA; J96.02 - ACUTE RESPIRATORY FAILURE WITH HYPERCAPNIA Comment: Secondary to #1, Start BiPAP NIMV, titrate to clinical response (2) Non-ST elevation [place] (NSTEMI) Current Visit: No Status: Acute Code(s): I21.4 - NON-ST ELEVATION (NSTEMI) MYOCARDIAL INFARCTION Comment: s/p cardiac cath showing diffuse disease with EF 40%, med mgmt, ASA 325mg and Plavix 75mg daily (3) Rheumatoid arthritis Current Visit: No Status: Acute Code(s): M06.9 - RHEUMATOID ARTHRITIS, UNSPECIFIED (4) HLD (hyperlipidemia) Current Visit: No Status: Chronic Code(s): E78.5 - HYPERLIPIDEMIA, UNSPECIFIED Comment: Start Lipitor 40mg HS (5) HTN (hypertension) Current Visit: No Status: Chronic Code(s): I10 - ESSENTIAL (PRIMARY) HYPERTENSION Qualifiers: Hypertension type: essential hypertension Qualified Code(s): I10 - Essential (primary) hypertension Comment: Resume Lashell add Hydralazine, serial monitoring (6) Ischemic cardiomyopathy Current Visit: No Status: Chronic Code(s): I25.5 - ISCHEMIC CARDIOMYOPATHY Comment: LADY-i, B-butch, ASA,Plavix, Lasix, EF 40 % in Cath ,30% on ECHO.Lifevest to be arranged - Plan CURB SETTER (GCS 15, Axox3) Resp (acute hypoxic resp failure) - ABG - diminished breath sounds at the bases - Dimer elevated, r/o PE - holding on anticoagulation at this time 2/2 concern for PE, may tpa CV (CBAG 2 weeks ago, SOB, HF) - BNP 1142, trop 1.972, dimer >20 - echo ordered - Cards, CV surg consulted, appreciate recs ID () GI - ppx Nutrition - NPO Renal () Heme- () Tubes Code Status: FULL Fluids: none Diet: NPO Dispo: pending workup FMR H&P: Upper Level - Plan Date/Time: 02/23/18 1158 I, [], have evaluated this patient and agree with findings/plan as outlined by regulatory intern resident. Pertinent changes/additions are listed here. Attending Addendum - Attending Addendum Date/Time: 02/23/18 2590 I personally evaluated the patient and discussed the management with Dr. Venegas/ Abbie I agree with the History, Examination, Assessment and Plan documented above with any addition or exceptions noted below.Patient examined in ER with Dr Venegas patient s/p recent 2VCABG Dr Capps followed by Dr Bustamante he summoned EMS today with c/o SOB noted tachycardia he denies CP nausea,vomiting, diaphoresis. Patient with life vest edema lower extremities report as new concern with PE,CHF ,ACS,Bibi syndrome will admit Cardiology consulted and appreciate recommendations. Echo, CTA and trending for ACS.
[2018-02-23] MEDS ORDERED: Furosemide 40 MG/4 ML VIAL ONE (12:02)
--- NOTE | 2018-02-23 12:25 | CT ---
CT ARTERIOGRAM CHEST WITH IV CONTRAST AND 3D MIP IMAGING: Date: 02/23/18 HISTORY: Chest pain. Dyspnea. COMPARISON: 12/21/17. FINDINGS: There is good contrast opacification of the pulmonary arteries and thoracic aorta with bovine origin of the great vessels at the aortic arch. Bilateral pleural fluid has increased slightly with associat ed atelectasis at each lung base. Calcified granulomata are consistent with healed granulomatous dise ase. Postoperative changes of the mediastinum. Hyperdense stone at the dependent portion of the gallb ladder. IMPRESSION: 1. No CT evidence of pulmonary embolus. 2. Bilateral pleural fluid has increased since the prior study. 3. Cholelithiasis. POS: [facility]
[2018-02-23] MEDS ORDERED: CCU Electrolyte Replacement 1 EACH IVPB ONE (12:45)
[2018-02-23 13:08] LABS: Actual Bicarbonate (HCO3a) 26.3 mEq/L (22-28); Analyzer IN Cardio ER; Base Excess (BEa) 2.5 mEq/L (-2.0 to +3.0); CO2 Tension 37.5 mmHg (35.0-45.0); Carboxyhemoglobin (COHb) 0.8 gm% (0.0-3.0); Hemoglobin (Hb) 11.6 g/dL (14.0-18.0); O2 Tension (PaO2) 88.1 mmHg (> 70.0); Potassium - ABG Lab 3.39 mmol/L (3.70-5.30); pH, Arterial 7.46 (7.35-7.45)
[2018-02-23 13:09] LABS: ALV-art Gradient 14.755 (0-20); Puncture Site LR
[2018-02-23] MEDS ORDERED: CCU ELECTROLYTE REPLACEMENT PROTOCOL FS PRN (13:13)
[2018-02-23] MEDS ORDERED: Magnesium Oxide 400 MG TAB PO PRN ×2 (13:13)
[2018-02-23] MEDS ORDERED: Potassium Chloride 40 MEQ in Premix Bag 1 BAG IVPB PRN (13:13)
[2018-02-23] MEDS ORDERED: Potassium Phosphate 12 MMOL in Sodium Chloride 0.9% 250 ML 250 ML IV PRN (13:13)
[2018-02-23] MEDS ORDERED: Potassium Chloride 20 MEQ TAB PO PRN (13:13)
[2018-02-23] MEDS ORDERED: Potassium Chloride 40 MEQ in Sodium Chloride 0.9% 250 ML 250 ML IVPB PRN (13:13)
[2018-02-23] MEDS ORDERED: Potassium Phosphate 9 MMOL in Sodium Chloride 0.9% 100 ML IVPB PRN (13:13)
[2018-02-23] MEDS ORDERED: Magnesium 2 GM/NS 0.9% 100 ML 2 GM in Premix Bag 1 BAG IVPB PRN (13:13)
[2018-02-23] MEDS ORDERED: Potassium Phosphate 15 MMOL in Sodium Chloride 0.9% 250 ML 250 ML IV PRN (13:13)
[2018-02-23 14:07] LABS: Lactic Acid 2.1 mmol/L (0.5-2.2)
[2018-02-23] MEDS ORDERED: Furosemide 40 MG/4 ML VIAL SLOW IVP SCH (14:15)
[2018-02-23 14:28] LABS: Troponin I 2.368 ng/mL (< 0.028)
[2018-02-23 14:31] VITALS: BMI 23.2
[2018-02-23] MEDS ORDERED: Carvedilol 6.25 MG TAB PO SCH ×2 (16:45→17:00)
[2018-02-23] MEDS: HYDROcodone/Acetaminophen 5/325 mg Tablet PO PRN ×2 (16:56→21:38)
[2018-02-23 17:52] LABS: CKMB 7.4 ng/mL (0-6.6); Troponin I 2.826 ng/mL (< 0.028)
[2018-02-23] MEDS ORDERED: Enoxaparin Sodium 40 MG/0.4 ML SYRINGE SC SCH (21:00)
--- NOTE | 2018-02-23 21:22 | CON ---
DATE OF CONSULTATION: 02/23/2018 HISTORY OF PRESENT ILLNESS: He is a 72-year-old -[place] gentleman recently discharged from the hospital following coronary bypass surgery and postop respiratory distress. He has a LifeVest in place because of congestive cardiomyopathy. He developed difficulty breathing over the last 24-48 hours without associated fever, chills, sweats and hemoptysis. CT angio showed no PE, but bilateral pleural effusion. His D-dimer was markedly elevated. He was seen in the hospital 02/01/2018 because of post-ICU care. The patient is a former smoker. No history of pneumonia or TB. PAST MEDICAL HISTORY: Arthritis, hypertension and anxiety. PAST SURGICAL HISTORY: Bypass, tonsils, knee. CHRONIC MEDICATION FROM HOME: Includes Zestril 2.5, Plavix 75, Coreg 6.25, Lipitor 40, aspirin, pred nisone 5 twice a day. ALLERGIES: PENICILLIN. REVIEW OF SYSTEMS: Otherwise unremarkable. PHYSICAL EXAMINATION: VITAL SIGNS: Sats are 96% on room air, pulse 80, blood pressure 120/58, and sats 96%. CHEST: Decreased breath sounds with minimal crackles. CARDIAC: Normal S1, S2, no gallops. ABDOMEN: Soft without masses. IMAGING DATA AND LABORATORY DATA: Chest x-ray shows cardiomegaly, infiltrates. CT showed pleural ef fusion. His electrolytes were unremarkable. BNP is markedly elevated 1142. CK-MB 75, glucose 198. White count 7000, hemoglobin and hematocrit 10 and 30. Blood gas; pO2 of 88, pCO2 of 37.6. IMPRESSION: 1. Congestive heart failure, cardiomyopathy, status post coronary artery bypass graft. 2. Arthritis on long-term steroids. His EF is 25%, clearly the cause of most of his dyspnea. Await cardiac input. Otherwise, continue Z estril, Coreg, Lasix. We will follow while in the ICU. Early ambulation. Deep venous thrombosis prophylaxis. Consultation note, 70 minutes, 50% in direct patient care.
--- NOTE | 2018-02-23 23:30 | CON ---
DATE OF CONSULTATION: 02/23/2018 CARDIOLOGY CONSULTATION PRIMARY CARE PHYSICIAN: The patient is unknown of patient's primary care doctor. PRIMARY PETS SALESPERSON: Dr. Bustamante. PRIMARY SURGEON: CV surgeon, Dr. Capps. REFERRING DOCTOR: Dr. Venegas. REASON FOR CARDIOLOGY CONSULTATION: Sinus tachycardia and status post recent coronary artery bypass graft. HISTORY OF PRESENT ILLNESS: Mr. Page is a 72-year-old -[place] male with a significant his tory of coronary artery disease with status post CABG x3, CONNELL to LAD, SVG to OM, and SVG to ramus. On 01/30/2018, chronic systolic heart failure with EF 20%-25% with LifeVest and hypertension. Byron newell was doing well until yesterday, but this morning around 5:00, when he woke up, he noticed he has st arted having shortness of breath. When he came back from [place] to get the coffee in the morning a round 8:00, his shortness of breath become worse and he ready to make it from his car to his home, so his called the EMS and the patient was transferred to the emergency department for further eval uation and treatment. Prior and during the episode and at this time, patient denied any other cardia c complaints such as chest pain or discomfort in his chest, dizziness, lightheadedness, numbness, or pain to the left upper extremity or any other complaints. He reports that his shortness of breath wa s same as very similar to the one that he has prior to that, he underwent to the CABG procedure. He also denies bilateral lower extremity edema or abdomen bloating. The patient had a history of coronary artery disease and CABG x3 on 01/30/[address] Capps. Patient 's echocardiogram was done on 01/16/2018, which shows EF 20%-25% with grade 1 diastolic dysfunction, severe global hypokinesis, mildly dilated left atrium, [id number] mitral valve regurgitation, m oderate aortic regurgitation, mild tricuspid regurgitation, and a moderate pulmonic valve regurgitati on, and a small-size perihilar effusion without tamponade. Patient's BNP today was 1142 and the olga lidia ent's troponin was 1.972 and a 2.368. Patient is going to have another one found. Patient's chest a nd thoracic CTA shows no evidence of pulmonary embolism. After patient received 2 doses of Lasix IV, he states that he can breathe much better. PAST MEDICAL HISTORY: 1. Hypertension. 2. Coronary artery disease with status post CABG x3. 3. Hyperlipidemia. 4. Chronic systolic heart failure. 5. Ischemic cardiomyopathy with LifeVest. 6. Anxiety and depression. PAST SURGICAL HISTORY: 1. CABG x3 on 01/30/2018. 2. Tonsillectomy. 3. Knee surgery. FAMILY HISTORY: There are significant hypertension of family history in his paternal side. The olga lidia ent's maternal side has no cardiac related medical history. Patient's aunts in the paternal side has AICD placement. Patient's cousin in the paternal side has underwent a CABG at age of 65. SOCIAL HISTORY: He is . He has 2 children that one of his child with infection rela toi disease. The patient another child lived well. He is an ex-smoker, quit about 25 years ago. He quit drinking about 6-7 years ago. He denies illicit drug abuse. He drink a coffee one cup a day i n the morning. He does not do any exercise this moment due to the weakness; however, he has started cardiac rehab twice since he was discharged from hospital. ALLERGIES: He is allergic to PENICILLIN. HOME MEDICATIONS: Prednisone 5 mg twice a day, atorvastatin 40 mg once a day, Plavix 75 mg once a da y, aspirin 81 mg once a day, carvedilol 6.25 mg twice a day, hydrocodone 5/325 one to two tablets fortunato ry 4 hours as needed, lisinopril 2.5 mg once a day. REVIEW OF SYSTEMS: Review of systems was negative, unless otherwise mentioned in the HPI or below. PHYSICAL EXAMINATION: VITAL SIGNS: Blood pressure 138/99, temperature is 98.4, pulse is 110s sinus tachycardia, O2 saturat ion 100% with 3 liters nasal cannula. GENERAL: Patient is alert and oriented x4, not in acute distress. HEAD: Normocephalic, atraumatic. EYES: Extraocular muscle movement intact. ENT: Oral and nasal mucosa moist without lesion. No JVD. Normal range of motion. LUNGS: Crackle to the bilateral low diminished at the bases. CARDIOVASCULAR: Regular rate and rhythm. Normal S1, S2. There are no S3, S4. No significant murmu r or thrill is noted, 2+ pulses in bilateral lower extremities. No edema noticed. ABDOMEN: Soft, nontender or mass to palpate. Bowel sounds are present. MUSCULOSKELETAL: Patient able to move all extremities. The patient denied of claudication. SKIN: Warm and dry. No erythema, lesion, or bruise noted. PSYCHIATRIC: Patient is alert, oriented x4. No focal. LABORATORY DATA: WBC 7.2, hemoglobin 10.1, hematocrit 33.9, platelets of 379. Sodium 140, potassium 3.6, BUN 12, creatinine 0.82. AST 28, ALT 17. CK-MB 7.5, troponin 1.972 and 2.368. BNP is 1142.5. Chest x-ray show mild edema and most likely some small pleural effusion to bilateral side. ASSESSMENT AND PLAN: 1. Acute on chronic systolic heart failure. After patient received the 2 doses of Lasix IV, patient 's respiratory status improved. Patient's echocardiogram was ordered this time, but result is pendin g at this moment. Patient on the beta-butch, carvedilol, lisinopril this moment. He more 1999, after patient received 2 doses of Lasix . Ischemic cardiomyopathy, last echocardiogram in 0 01/2018 and shows EF of 20%-25% with grade 1 diastolic dysfunction and severe global hypokinesis. Brenna benites's is LifeVest on this moment. He denies any discharge from LifeVest since he was discharged wit h the LifeVest. We would like to continue to monitor. 2. Coronary artery disease, status post coronary artery bypass graft x3 in 01/2018, patient's condit ion is stable at this moment, we would like to continue to monitor. 3. Tachycardia. Patient's heart rates have been in the 110s with Coreg 6.25 mg twice a day. We wo uld like to increase to 12.5 mg twice a day and we like to continue to monitor on telemetry. 4. Hypertension. His blood pressure has been stable with the current medication. 5. Hyperlipidemia. Patient on atorvastatin 40 mg once a day 6. Chronic anemia. Patient's hemoglobin level in blood count is stable at this moment, we would lik e to continue to monitor. 7. Rheumatoid arthritis to the left upper extremities, which is managed by primary care doctor. Thank you very much for Cardiology service to participate in the care of the patient. We will follow along the patient care team and make a further recommendation as appropriate. Patient is going to b e transferred to telemetry floor as soon as they have a bed available.
--- NOTE | 2018-02-24 01:50 | CON ---
DATE OF CONSULTATION: 02/23/2018 INDICATION FOR CONSULTATION: A 72-year-old patient with CHF exacerbation. HISTORY OF PRESENT ILLNESS: This is a very unfortunate 72-year-old gentleman who recently underwent bypass surgery, was out today at [facility]. He woke up this morning somewhat short of breath, went outside, it was cool and he felt better. He then went to [facility] and got a cup of coffee and when going back home, he felt like he was so short of breath that he would make it but he did not make an d came to the emergency room and was noted to have some tachycardia and shortness of breath and dyspn ea on exertion. He has had some improvement after being given some IV Lasix. He has had no signific ant edema, but he did have some mild swelling of his ankles. He denies any chest pain, but says that his shortness of breath was very similar to what he had prior to undergoing bypass surgery. He also has cardiomyopathy and this has a LifeVest in place. At this time, his cardiac enzymes are abnormal . This may be due to demand ischemia associated with an acute congestive heart failure. This may be due also to possible graft closure since he just had a recent bypass surgery. His troponin I on adm ission was 1.9, it is increased up to 2.8. His BNP was 1142. MB is 7.4. For his other laboratory d kym, please refer to the dictations already performed by the nurse practitioner. Before the bypass s urgery back in 01/15/2018, his troponin I was up to 2.3 previously and back in December also was abnorm al up to 2.857. His D-dimer was elevated at 20. He did have a CT angiogram, which did not show any evidence of pulmonary emboli. His hemoglobin is 10.1. At this time, he has no shortness of breath. He is able to lie almost flat but does have some shortness of breath when he is absolutely flat. He has had no chest discomfort to speak up and he appeared to be much more stable at this time. For his past medical history, social history, family history, review of systems, medications and sonja rgies, please refer to the note dictated by the nurse practitioner. PHYSICAL EXAMINATION: GENERAL: Reveals an elderly gentleman who is alert and oriented. He is in no acute distress at this time. VITAL SIGNS: Blood pressure is 147/92. His heart rate is 107-115 but was in sinus rhythm. On arriv al today, he was in a sinus rhythm. He remains in sinus rhythm and appears to be a sinus tachycardia , respiratory rate is approximately 20, O2 saturations earlier were 100 and then there was one, 99-10 0% HEENT: Unremarkable. CHEST: He has decreased breath sounds at the bilateral bases. CARDIOVASCULAR: He has a systolic murmur at the upper sternal border. Otherwise, he has a regular r ate and rhythm at this time, mild tachycardia, perhaps no gross murmurs were noted otherwise. He did have a very soft murmur at the apex. ABDOMEN: Unremarkable. Soft and nontender. EXTREMITIES: Show no clubbing, cyanosis or edema. Pedal pulses are somewhat difficult to palpate, b ut there is no edema noted except for perhaps some trace ankle edema, but otherwise not significant. NEUROLOGIC: Unremarkable. SKIN: Warm and dry. IMPRESSION: 1. Congestive heart failure exacerbation appears to be due to volume overload and may also be due to underlying ischemia. He has graft closure. He did have on 01/30, he had 3-vessel bypass grafting b y Dr. Maulik Capps with a CONNELL to the LAD which is 2.0 mm vessel. He has saphenous vein graft to a diffusely diseased ramus which was 1.0 mm, as well as also it was very small target, was not felt to be a redo target. He also had a 1.0 mm vessel and the obtuse marginal branch which was bypassed. Th is was also not felt to be a redo target. It is quite possible that he has closed one of these graft s due to most likely a poor flow down the vessels. He has a LifeVest in place. We will continue to monitor him and wants to make sure that he is on anticoagulation in the form of Lovenox at this time at full dose for therapeutic and not just DVT prophylaxis. We would continue his beta blockers and h is statin medications for his cholesterol and continue diuretics due to his volume overload. His smita al function appears to be stable. Further care of the patient will be dictated by his progress here in the hospital whether or not he deteriorates further, but it is unlikely that he will be a very goo d candidate for any further intervention unless he has significant ST segment changes which would ind icate maybe LAD stenosis or occlusion, but at this time, it is most likely that he has occluded one o f his grafts if he continues to have elevation of the cardiac enzymes. We will continue his diuretic s as noted above as well as his Coreg and LADY inhibitors. We may consider placing him on Entresto if he is able to afford this medication. He will need a better diet and fluid control. 2. History of cardiomyopathy. His last ejection fraction at the time of his bypass surgery was 20-2 5%. He has a LifeVest in place. 3. History of diastolic dysfunction. We will continue his medications for this. 4. Moderate aortic valve regurgitation, which may also exacerbate his congestive heart failure exace rbation. We will continue to follow the patient very carefully as far as his other medical problems, these include the hypertension which will need to address his medications also, this is somewhat dino vated this evening. 5. Hyperlipidemia. We will continue his statin medications. He also gives a history of rheumatoid arthritis and was to be dealt with by the primary care service.
[2018-02-24 05:30] LABS: Anion Gap 11 mmol/L (10-20); BUN (Urea Nitrogen) 12 mg/dL (8.4-25.7); Calc. Creatinine Clearance 88 mL/min (70-130); Calcium 8.6 mg/dL (7.8-10.44); Carbon Dioxide 30 mmol/L (23-31); Chloride 103 mmol/L (98-107); Estimated GFR-MDRD Greater than 90; Glucose 74 mg/dL (83-110); Potassium 3.4 mmol/L (3.5-5.1); Sodium 141 mmol/L (136-145)
[2018-02-24 05:46] LABS: Band 5 % (5-11); Eosinophils 4 % (0-10); Hemoglobin 10.1 g/dL (14.0-18.0); Lymphocytes 14 % (21-51); MDiff Complete? YES; Macrocytosis SLIGHT = 6-15 cells (100X) (0-5/hpf); Mean Corpuscular HGB CONC 31.2 g/dL (32.0-36.0); Mean Corpuscular Hemoglobin 32.7 pg (27.0-31.0); Mean Platelet Volume 6.9 fL (7.4-10.4); Metamyelocyte 1 % (0-0); Monocytes 8 % (0-10); Neutrophil 66 % (42-75); PLT Morphology Comment Appears Adequate; Platelet Count 302 thou/uL (130-400); RBC Distribution Width 14.1 % (11.5-14.5); Reactive Lymphocytes 1 % (0-10); Red Blood Cell (RBC) Count 3.09 mill/uL (4.70-6.10); White Blood Cell (WBC) Count 6.2 thou/uL (4.8-10.8)
[2018-02-24] MEDS ORDERED: Potassium Chloride 20 MEQ TAB PO SCH (06:15)
[2018-02-24] MEDS: HYDROcodone/Acetaminophen 5/325 mg Tablet PO PRN ×3 (07:25→20:43)
--- NOTE | 2018-02-24 08:43 | PDOC.FM ---
Addendum entered and electronically signed by Savage Leiva DO 02/24/18 09: 02: HFrEF: - maximize medical therapy - titrate meds to tolerability Original Note: - Subjective Subjective: No acute events overnight. Pt remains mildly tachycardic at 106. Coreg increased. He reports significant improvement in the SOB. Denies cp, nvdc, diapohoresis. Tolerating PO. - Objective Vital Signs & Weight: Vital Signs (12 hours) Temp Pulse Resp BP Pulse Ox 02/24/18 07:44 98.2 F 100 18 121/66 100 02/24/18 03:54 98.2 F 108 H 16 119/69 99 02/23/18 23:16 98.3 F 100 13 107/58 L 99 Weight Weight 72.121 kg Most Recent Monitor Data Heart Rate from ECG 115 NIBP 147/92 NIBP BP-Mean 110 Respiration from ECG 21 SpO2 59 I&O: 02/23/18 02/24/18 02/25/18 06:59 06:59 06:59 Intake Total 350 Output Total 3175 Balance -2825 Result Diagrams: 02/24/18 04:29 02/24/18 04:29 <Savage Leiva - Last Filed: 02/24/18 08:41> - Objective Vital Signs & Weight: Vital Signs (12 hours) Temp Pulse Pulse Pulse Resp BP BP 02/24/18 11:36 97.5 F L 101 H 16 02/24/18 11:22 100 101 H 105/85 02/24/18 11:12 101/54 L 02/24/18 11:11 106 H 101/54 L 02/24/18 11:09 97.3 F L 106 H 16 02/24/18 07:44 98.2 F 100 18 02/24/18 03:54 98.2 F 108 H 16 BP BP BP Pulse Ox Pulse Ox Pulse Ox 02/24/18 11:36 104/57 L 99 02/24/18 11:22 104/57 L 99 98 02/24/18 11:12 02/24/18 11:11 02/24/18 11:09 101/54 L 97 02/24/18 07:44 121/66 100 02/24/18 03:54 119/69 99 Weight Weight 72.121 kg Most Recent Monitor Data Heart Rate from ECG 115 NIBP 147/92 NIBP BP-Mean 110 Respiration from ECG 21 SpO2 59 I&O: 02/23/18 02/24/18 02/25/18 06:59 06:59 06:59 Intake Total 350 360 Output Total 3175 Balance -2825 360 Result Diagrams: 02/24/18 04:29 02/24/18 04:29 <Chauncey Zazueta - Last Filed: 02/24/18 13:20> Phys Exam - Physical Examination Constitutional: NAD HEENT: PERRLA, moist MMs Neck: no nodes Respiratory: no wheezing, no rales, no rhonchi, clear to auscultation bilateral Cardiovascular: RRR, no significant murmur, no rub Gastrointestinal: soft, non-tender, no distention, positive bowel sounds Musculoskeletal: no edema, pulses present Neurological: non-focal, moves all 4 limbs Skin: no rash, normal turgor, cap refill <2 seconds <Savage Leiva - Last Filed: 02/24/18 08:41> Dx/Plan (1) Non-ST elevation MA (NSTEMI) Code(s): I21.4 - NON-ST ELEVATION (NSTEMI) MYOCARDIAL INFARCTION Status: Acute (2) Acute respiratory failure with hypoxia and hypercapnia Code(s): J96.01 - ACUTE RESPIRATORY FAILURE WITH HYPOXIA; J96.02 - ACUTE RESPIRATORY FAILURE WITH HYPERCAPNIA Status: Acute (3) HLD (hyperlipidemia) Code(s): E78.5 - HYPERLIPIDEMIA, UNSPECIFIED Status: Chronic (4) HTN (hypertension) Code(s): I10 - ESSENTIAL (PRIMARY) HYPERTENSION Status: Chronic Qualifiers: Hypertension type: essential hypertension Qualified Code(s): I10 - Essential (primary) hypertension (5) Ischemic cardiomyopathy Code(s): I25.5 - ISCHEMIC CARDIOMYOPATHY Status: Chronic (6) Acute cardiogenic pulmonary edema Status: Resolved (7) Status post coronary artery bypass graft Code(s): Z95.1 - PRESENCE OF AORTOCORONARY BYPASS GRAFT Status: Acute - Plan Plan: 1) NSTEMI: - the lovenox - per cards, possible occlusion of small graft from cabg 3 wks prior not ammenable to intervention vs demand ischemia - maximize medical therapy and cont dual antiplatelet therapy in addition to the lovenox - cards and cv surg consulted, appreciate recs 2) Acute hypoxic respiratory failure: - likely 2/2 CHF exacerbation vs nstemi - greatly improved with diuresis - cont lasix - O2 requiremrnt decreased, satting well w/o O2 supplementation this am 3) HTN: - home meds - titrate to tolerating 4) HLD: - resume home meds 5) Cardiomyopathy: - maximize medical management Dispo: greatly improved with lasix, cont current meds and titrate HF meds to tolerability. Appreciate cards and cv surg recommendations. <Savage Leiva - Last Filed: 02/24/18 08:41> (1) Acute respiratory failure with hypoxia and hypercapnia Code(s): J96.01 - ACUTE RESPIRATORY FAILURE WITH HYPOXIA; J96.02 - ACUTE RESPIRATORY FAILURE WITH HYPERCAPNIA Status: Acute (2) Non-ST elevation MA (NSTEMI) Code(s): I21.4 - NON-ST ELEVATION (NSTEMI) MYOCARDIAL INFARCTION Status: Acute (3) Rheumatoid arthritis Code(s): M06.9 - RHEUMATOID ARTHRITIS, UNSPECIFIED Status: Acute (4) HLD (hyperlipidemia) Code(s): E78.5 - HYPERLIPIDEMIA, UNSPECIFIED Status: Chronic (5) HTN (hypertension) Code(s): I10 - ESSENTIAL (PRIMARY) HYPERTENSION Status: Chronic Qualifiers: Hypertension type: essential hypertension Qualified Code(s): I10 - Essential (primary) hypertension (6) Ischemic cardiomyopathy Code(s): I25.5 - ISCHEMIC CARDIOMYOPATHY Status: Chronic <Chauncey Zazueta - Last Filed: 02/24/18 13:20> Attending Addendum - Attending Addendum Date/Time: 02/24/18 [id number] I personally evaluated the patient and discussed the management with Dr. Leiva I agree with the History, Examination, Assessment and Plan documented above with any addition or exceptions noted below. Patient much improved since admission. <Chauncey Zazueta - Last Filed: 02/24/18 13:20>
[2018-02-24] MEDS ORDERED: Aspirin 81 mg Enteric Coated Tablet PO SCH (09:00)
[2018-02-24] MEDS: Clopidogrel Bisulfate 75 MG TAB PO SCH (09:01)
[2018-02-24] MEDS: Atorvastatin Calcium 40 MG TAB PO SCH (09:01)
[2018-02-24] MEDS: Enoxaparin Sodium 80 MG/0.8 ML SYRINGE SC SCH ×2 (09:03→20:44)
--- NOTE | 2018-02-24 10:48 | RAD ---
FRONTAL VIEW CHEST: COMPARISON: Previous day. INDICATION: ICU patient, respiratory distress, followup. FINDINGS: Extrinsic artifacts limit detail. No significant interval detrimental change from the previous day. IMPRESSION: Grossly stable chest. Markedly limited due to numerous extrinsic artifacts. POS: VANDANAK
[2018-02-24] MEDS: Lisinopril 5 MG TAB PO SCH (11:11)
[2018-02-24] MEDS: Carvedilol 6.25 MG TAB PO SCH ×2 (11:12→18:05)
--- NOTE | 2018-02-24 13:14 | PDOC.CTH ---
<Joana Garcia - Last Filed: 02/24/18 13:15> Cardiology Progress Note - Subjective The pt seen and examined. No overnight events. No cardiac complaints. The pt reported that he can breath better with RA. - Objective Vital Signs Temp Pulse Pulse Pulse Resp BP BP 02/24/18 11:36 97.5 F L 101 H 16 02/24/18 11:22 100 101 H 105/85 02/24/18 11:12 101/54 L 02/24/18 11:11 106 H 101/54 L 02/24/18 11:09 97.3 F L 106 H 16 02/24/18 07:44 98.2 F 100 18 02/24/18 03:54 98.2 F 108 H 16 BP BP BP Pulse Ox Pulse Ox Pulse Ox 02/24/18 11:36 104/57 L 99 02/24/18 11:22 104/57 L 99 98 02/24/18 11:12 02/24/18 11:11 02/24/18 11:09 101/54 L 97 02/24/18 07:44 121/66 100 02/24/18 03:54 119/69 99 Weight 159 lb 02/23/18 02/24/18 02/25/18 06:59 06:59 06:59 Intake Total 350 360 Output Total 3175 Balance -2825 360 - Physical Examination General/Neuro: alert & oriented x3 Neck: no JVD present Lungs: CTA (diminished at bases) Heart: RRR Abdomen: soft Extremities: other: (No edema) - Telemetry Telemetry Rhythm: SR - Labs Result Diagrams: 02/24/18 04:29 02/24/18 04:29 Troponin/CKMB CK-MB (CK-2) 7.4 ng/mL (0-6.6) H* 02/23/18 17:10 Troponin I 2.826 ng/mL (< 0.028) H* 02/23/18 17:10 - Assessment/Plan 1. Acute on Chronic Systolic HF - EF on 02/23/18 was 20-25%. On LiveFest. On BBlocker and LADY, which may change to Entresto when his VS is stable. 2. Ischemic CMY - On LifeVest 3. CAD with s/p CABG x 3 with CONNELL-LAD, SVG-OM, and SVG-Ramus - stable with BBlocker and LADY, Plavix, and ASA. 4. Tachycardia - stable with Coreg 12.5mg BID; cont. to monitor on tele 5. HTN - stable; Cont. to monitor 6. Hyperlipidemia - On statin. 7. Anemia - stable MAR reviewed * Echo on 02/23/18 showed EF 20-25%, akinetic apex, mod dilated LA, mild MR, mild-mod AR, mild TR, and mod MO. Review of Systems - Review of Systems Constitutional: reports: no symptoms reported EENTM: reports: no symptoms reported Respiratory: reports: no symptoms reported Cardiac (ROS): reports: no symptoms reported ABD/GI: reports: no symptoms reported : reports: no symptoms reported Musculoskeletal: reports: no symptoms reported <Jody Miller - Last Filed: 02/24/18 23:58> Cardiology Progress Note - Objective Vital Signs Temp Pulse Resp BP BP BP Pulse Ox 02/24/18 19:55 98.3 F 88 17 91/54 L 99 02/24/18 18:05 126/60 02/24/18 16:00 97.2 F L 95 16 126/60 100 02/24/18 12:00 99 Weight 159 lb 02/23/18 02/24/18 02/25/18 06:59 06:59 06:59 Intake Total 350 360 Output Total 3175 Balance -2825 360 - Labs Result Diagrams: 02/24/18 04:29 02/24/18 04:29 Troponin/CKMB CK-MB (CK-2) 7.4 ng/mL (0-6.6) H* 02/23/18 17:10 Troponin I 2.826 ng/mL (< 0.028) H* 02/23/18 17:10 - Assessment/Plan Pt. seen and evaluated by me. I agree with the A/P by the [employer]. We have discussed the pt. and the plan.Chest clear RRR. He is feeling better and wants to go home.
[2018-02-25 06:02] LABS: Anion Gap 12 mmol/L (10-20); BUN (Urea Nitrogen) 14 mg/dL (8.4-25.7); Band 3 % (5-11); Calc. Creatinine Clearance 89 mL/min (70-130); Calcium 8.7 mg/dL (7.8-10.44); Carbon Dioxide 30 mmol/L (23-31); Chloride 102 mmol/L (98-107); Eosinophils 2 % (0-10); Estimated GFR-MDRD Greater than 90; Glucose 84 mg/dL (83-110); Hemoglobin 10.3 g/dL (14.0-18.0); Lymphocytes 23 % (21-51); MDiff Complete? YES; Macrocytosis SLIGHT = 6-15 cells (100X) (0-5/hpf); Mean Corpuscular HGB CONC 30.3 g/dL (32.0-36.0); Mean Corpuscular Hemoglobin 31.7 pg (27.0-31.0); Mean Platelet Volume 6.6 fL (7.4-10.4); Monocytes 14 % (0-10); Neutrophil 57 % (42-75); Ovalocytes SLIGHT = 2-5 cells (100X) (0-1/hpf); PLT Morphology Comment Appears Adequate; Platelet Count 294 thou/uL (130-400); Potassium 3.8 mmol/L (3.5-5.1); RBC Distribution Width 14.1 % (11.5-14.5); Reactive Lymphocytes 1 % (0-10); Red Blood Cell (RBC) Count 3.24 mill/uL (4.70-6.10); Sodium 140 mmol/L (136-145); Target Cells SLIGHT = 2-5 cells (100X) (0-1/hpf); White Blood Cell (WBC) Count 5.6 thou/uL (4.8-10.8)
--- NOTE | 2018-02-25 06:41 | PDOC.FM ---
- Subjective Subjective: This morning patient states he is feeling well and looking forward to going home when medically cleared. He was able to walk the hallways yesterday without CP or SOB. He denies N/V/D. No issues with PO intake. - Objective Vital Signs & Weight: Vital Signs (12 hours) Temp Pulse Resp BP Pulse Ox 02/25/18 05:25 96 02/25/18 03:57 98.3 F 98 14 104/58 L 96 02/25/18 00:00 98.0 F 101 H 14 99/54 L 97 02/24/18 19:55 98.3 F 88 17 91/54 L 99 Weight Weight 72.121 kg Most Recent Monitor Data Heart Rate from ECG 115 NIBP 147/92 NIBP BP-Mean 110 Respiration from ECG 21 SpO2 59 I&O: 02/23/18 02/24/18 02/25/18 06:59 06:59 06:59 Intake Total 350 360 Output Total 3175 Balance -2825 360 Result Diagrams: 02/25/18 05:21 02/25/18 05:21 <Silverio Venegas - Last Filed: 02/25/18 06:44> - Objective Vital Signs & Weight: Vital Signs (12 hours) Temp Pulse Resp BP BP Pulse Ox 02/25/18 09:20 105 H 02/25/18 09:19 109/57 L 02/25/18 08:15 99.1 F 105 H 20 109/57 L 98 02/25/18 08:00 98 02/25/18 05:25 96 02/25/18 03:57 98.3 F 98 14 104/58 L 96 Weight Weight 71.441 kg Most Recent Monitor Data Heart Rate from ECG 115 NIBP 147/92 NIBP BP-Mean 110 Respiration from ECG 21 SpO2 59 I&O: 02/24/18 02/25/18 02/26/18 06:59 06:59 06:59 Intake Total 350 770 Output Total 3175 375 Balance -2825 395 Result Diagrams: 02/25/18 05:21 02/25/18 05:21 <Chauncey Zazueta - Last Filed: 02/25/18 12:57> Phys Exam - Physical Examination Constitutional: NAD HEENT: PERRLA, moist MMs Respiratory: no wheezing, no rales, clear to auscultation bilateral Cardiovascular: RRR, no significant murmur Gastrointestinal: soft, non-tender, no distention, positive bowel sounds Musculoskeletal: no edema, pulses present Neurological: non-focal, moves all 4 limbs Psychiatric: normal affect, A&O x 3 Skin: no rash, cap refill <2 seconds <Silverio Venegas - Last Filed: 02/25/18 06:44> Dx/Plan (1) Acute respiratory failure with hypoxia and hypercapnia Code(s): J96.01 - ACUTE RESPIRATORY FAILURE WITH HYPOXIA; J96.02 - ACUTE RESPIRATORY FAILURE WITH HYPERCAPNIA Status: Acute (2) Non-ST elevation ND (NSTEMI) Code(s): I21.4 - NON-ST ELEVATION (NSTEMI) MYOCARDIAL INFARCTION Status: Acute (3) Rheumatoid arthritis Code(s): M06.9 - RHEUMATOID ARTHRITIS, UNSPECIFIED Status: Acute (4) HLD (hyperlipidemia) Code(s): E78.5 - HYPERLIPIDEMIA, UNSPECIFIED Status: Chronic (5) HTN (hypertension) Code(s): I10 - ESSENTIAL (PRIMARY) HYPERTENSION Status: Chronic Qualifiers: Hypertension type: essential hypertension Qualified Code(s): I10 - Essential (primary) hypertension (6) Ischemic cardiomyopathy Code(s): I25.5 - ISCHEMIC CARDIOMYOPATHY Status: Chronic - Plan Plan: # NSTEMI: - therapeutic lovenox - per cards, possible occlusion of small graft from cabg 3 wks prior not ammenable to intervention vs demand ischemia - cont dual antiplatelet therapy - cards and cv surg consulted, appreciate recs # Acute hypoxic respiratory failure- resolved - likely 2/2 CHF exacerbation vs nstemi - greatly improved with diuresis - cont lasix - RA this AM # HTN: - home meds - appreciate cardiology recs # HLD: - resume home meds # Cardiomyopathy: - maximize medical management Dispo: cont medical management, appreciate cardiology/CV recs <Silverio Venegas - Last Filed: 02/25/18 06:44> (1) Acute respiratory failure with hypoxia and hypercapnia Code(s): J96.01 - ACUTE RESPIRATORY FAILURE WITH HYPOXIA; J96.02 - ACUTE RESPIRATORY FAILURE WITH HYPERCAPNIA Status: Acute (2) Non-ST elevation ND (NSTEMI) Code(s): I21.4 - NON-ST ELEVATION (NSTEMI) MYOCARDIAL INFARCTION Status: Acute (3) Rheumatoid arthritis Code(s): M06.9 - RHEUMATOID ARTHRITIS, UNSPECIFIED Status: Acute (4) HLD (hyperlipidemia) Code(s): E78.5 - HYPERLIPIDEMIA, UNSPECIFIED Status: Chronic (5) HTN (hypertension) Code(s): I10 - ESSENTIAL (PRIMARY) HYPERTENSION Status: Chronic Qualifiers: Hypertension type: essential hypertension Qualified Code(s): I10 - Essential (primary) hypertension (6) Ischemic cardiomyopathy Code(s): I25.5 - ISCHEMIC CARDIOMYOPATHY Status: Chronic <Chauncey Zazueta - Last Filed: 02/25/18 12:57> Attending Addendum - Attending Addendum Date/Time: 02/25/18 2845 I personally evaluated the patient and discussed the management with Dr. Iggy Venegas I agree with the History, Examination, Assessment and Plan documented above with any addition or exceptions noted below. Symptoms resolved patient with Live vest Further rec regard continued observation per Cardiology appreciate recommendations. <Chauncey Zazueta - Last Filed: 02/25/18 12:57>
--- NOTE | 2018-02-25 08:29 | EKG ---
Test Reason : SOB Blood Pressure : / mmHG Vent. Rate : 129 BPM Atrial Rate : 129 BPM P-R Int : 094 ms QRS Dur : 092 ms QT Int : 324 ms P-R-T Axes : 052 018 088 degrees QTc Int : 474 ms Sinus tachycardia with short NH Possible Left atrial enlargement Nonspecific T wave abnormality Abnormal ECG When compared with ECG of Jan 23 11:25:53 No significant change was found Confirmed by LOTUS BENNETT ([id number]) on 02/25/2018 8:28:51 AM Referred By: Confirmed By:LOTUS BENNETT
[2018-02-25] MEDS: Carvedilol 6.25 MG TAB PO SCH (09:19)
[2018-02-25] MEDS: Atorvastatin Calcium 40 MG TAB PO SCH (09:20)
[2018-02-25] MEDS: Clopidogrel Bisulfate 75 MG TAB PO SCH (09:20)
[2018-02-25] MEDS: Lisinopril 5 MG TAB PO SCH (09:20)
[2018-02-25] MEDS: HYDROcodone/Acetaminophen 5/325 mg Tablet PO PRN (09:21)
[2018-02-25] MEDS: Enoxaparin Sodium 80 MG/0.8 ML SYRINGE SC SCH (09:26)
--- NOTE | 2018-02-25 10:20 | RAD ---
FRONTAL VIEW CHEST: COMPARISON: Previous day. INDICATION: Ventilated patient, followup. FINDINGS: There remain numerous extrinsic artifacts which limit visualization. No significant interval change is identified. IMPRESSION: Stable chest. POS: [facility]
--- NOTE | 2018-02-25 12:33 | PRG ---
DATE OF SERVICE: 02/25/2018 SUBJECTIVE: He is better, less short of breath. OBJECTIVE: VITAL SIGNS: Sats are 98 on room air, pulse 105, blood pressure . CHEST: Minimal crackles without any wheezing. CARDIAC: Normal S1, S2. No gallops. ABDOMEN: Soft. No masses. LABORATORY DATA: Electrolytes are normal. White count is unremarkable. IMPRESSION: 1. Status post CABG. 2. Congestive heart failure and pleural effusion, much improved. PLAN: Disposition as per Cardiology. Pulmonary will follow at a distance. Please call as needed.
--- NOTE | 2018-02-25 13:33 | PDOC.CTH ---
Cardiology Progress Note - Subjective The pt seen and examined. No overnight events. No cardiac complaints. The pt has walked around the floor without any cardiac complaints. - Objective Vital Signs Temp Pulse Resp BP BP Pulse Ox 02/25/18 09:20 105 H 02/25/18 09:19 109/57 L 02/25/18 08:15 99.1 F 105 H 20 109/57 L 98 02/25/18 08:00 98 02/25/18 05:25 96 02/25/18 03:57 98.3 F 98 14 104/58 L 96 Weight 157 lb 8 oz 02/24/18 02/25/18 02/26/18 06:59 06:59 06:59 Intake Total 350 770 Output Total 3175 375 Balance -2825 395 - Physical Examination General/Neuro: alert & oriented x3 Neck: no JVD present Lungs: CTA Heart: RRR Abdomen: soft Extremities: other: (No edema) - Telemetry Telemetry Rhythm: SR 90s - Labs Result Diagrams: 02/25/18 05:21 02/25/18 05:21 Troponin/CKMB CK-MB (CK-2) 7.4 ng/mL (0-6.6) H* 02/23/18 17:10 Troponin I 2.826 ng/mL (< 0.028) H* 02/23/18 17:10 - Assessment/Plan 1. Acute on Chronic Systolic HF - EF on 02/23/18 was 20-25%. On LiveFest. On BBlocker and LADY, which may change to Entresto when his VS is stable. 2. Ischemic CMY - On LifeVest 3. CAD with s/p CABG x 3 with CONNELL-LAD, SVG-OM, and SVG-Ramus - stable with BBlocker and LADY, Plavix, and ASA. 4. Tachycardia - stable with Coreg 12.5mg BID; cont. to monitor on tele 5. HTN - stable; Cont. to monitor 6. Hyperlipidemia - On statin. 7. Anemia - stable MAR reviewed * Echo on 02/23/18 showed EF 20-25%, akinetic apex, mod dilated LA, mild MR, mild-mod AR, mild TR, and mod VT. * From Cardiac standpoint, the pt is stable to d/c home. The pt already has f/ u appt with Dr Bustamante within 1-2 wks. Review of Systems - Review of Systems Constitutional: reports: no symptoms reported EENTM: reports: no symptoms reported Respiratory: reports: no symptoms reported Cardiac (ROS): reports: no symptoms reported ABD/GI: reports: no symptoms reported : reports: no symptoms reported Musculoskeletal: reports: no symptoms reported
[2018-02-25 13:48] VITALS: BP 98/55; TEMP 98.5
--- NOTE | 2018-02-26 07:54 | PRG ---
DATE OF SERVICE: 02/24/2018 SUBJECTIVE: Philipp Page is much improved. Pleural effusion resolved. OBJECTIVE: VITALS: Sats are 98% on room air, temperature 98.7, pulse 101, blood pressure 101/57. CHEST: No wheezing or crackles. CARDIAC: Normal S1, S2. ABDOMEN: Soft, no masses. RESPIRATORY: crackles. ECHO _ cardiomyopathy, EF 20%. Pulmonary stephenson, continue cardiac care. DISPOSITION: As per Cardiology, home anytime. MTDD
--- NOTE | 2018-02-26 15:28 | DIS-2 ---
LOCATION: [facility] in [place], [place] DATE OF SERVICE: 02/25/2018 DATE OF ADMISSION: 02/23/2018 DATE OF DISCHARGE: 02/25/2018 ADMITTING ATTENDING: Dr. Chauncey Zazueta. DISCHARGE ATTENDING: Dr. Chauncey Zazueta. RESIDENT PHYSICIAN: Dr. Savage Leiva. HISTORY OF PRESENT ILLNESS : The patient is a 72-year-old male with a past medical history of bowen ry artery disease, status post CABG; rheumatoid arthritis; hypertension; tobacco abuse; and depressio n, who presents with shortness of breath started the day prior to arrival. Per EMS, the patient was tachycardic, although he denied any pain whatsoever. Patient reported his exercise tolerance had dec reased, he could not walk to the door, becoming weak and short of breath. He also noted swelling in his feet in addition to the above symptoms. Admission labs showed a CK-MB of 7.5, troponin of 1.97, BNP 1142. A repeat troponin is 2.368. Repeat CK-MB was 7.4. Patient had an echocardiogram on 02/23 that showed an ejection fraction at 20-25% akinetic apex and E/A flow reversal suggesting diast olic dysfunction as well. Ultimately, the patient was treated for post-CABG heart failure and approp riate medications were administered. The patient was initially tachycardic at 123 on presentation; h owever, that subsequently declined over the next few days. He was discharged with a rate of 94. Ove rall, the patient reported drastic improvement with increased diuresis and his symptoms had continued to have resolved. He had an uncomplicated hospital course and was discharged home with instruction of follow up with his primary care provider. ADMITTING DIAGNOSES: 1. Acute cardiogenic pulmonary edema. 2. Acute respiratory failure with hypoxia and hypercapnia. 3. Non-ST elevation myocardial infarction. SECONDARY DIAGNOSES: 1. Ischemic cardiomyopathy. 2. Hypertension. 3. Hyperlipidemia. 4. Rheumatoid arthritis. 5. Status post coronary artery bypass graft. CONSULTATIONS: 1. Cardiology, Dr. Miller. 2. Pulmonology and Critical Care, Dr. Jameson. PROCEDURES: 1. Chest x-ray done on 02/23/2018, showed mild edema and likely some small pleural effusions. 2. Chest CTA done on 02/23/[address] evidence of pulmonary embolism. Bilateral pleural flui d has increased since prior study. Cholelithiasis. 3. Echocardiogram done on 02/23/2018 showed an ejection fraction of 20-25% with an akinetic apex in addition to E/A flow reversal suggestive of diastolic dysfunction. 4. A chest x-ray done on 02/24/2018 showed grossly stable. Chest markedly limited due to extrinsic artifact. 5. Chest x-ray done on 02/25/2018 showed a stable chest x-ray. DISCHARGE MEDICATIONS: 1. Aspirin 81 mg daily. 2. Prednisone 5 mg p.o. b.i.d. 3. Lipitor 40 mg p.o. daily. 4. Coreg 12.5 mg p.o. b.i.d. 5. Plavix 75 mg p.o. daily. 6. Lasix 20 mg p.o. daily. 7. Hydrocodone 5/325 one tab p.o. q.4 hours as needed. 8. Lisinopril 2.5 mg daily. DISCONTINUED MEDICATIONS: None. DISCHARGE INSTRUCTIONS: 1. Patient discharged to home. 2. Diet: Heart healthy. Fluid restriction to 2 liters. Salt restriction to 2 grams. 3. Activity: Ad cindy. 4. Follow with primary care provider in 7-10 days. 5. Follow up with Cardiology in 2-3 weeks following discharge.
--- NOTE | 2018-02-28 12:19 | PQF ---
HOANG DESAI MARIA ACHAUNCEY [id number] [facility]-[id number] CLINICAL DOCUMENTATION CLARIFICATION FORM: POST DISCHARGE DATE: 02/28/2018 ATTN: Dr. Chauncey Zazueta Please exercise your independent, professional judgment in responding to the clarification form. Clinical indicators are provided on the bottom of this form for your review Please check appropriate box(s): [ ] NSTEMI [ ] demand ischemia [ ] occlusion of small graft from cabg [ ] Other diagnosis [ x ] Unable to determine In addition, please specify: Present on Admission (POA): [ x] Yes [ ] No [ ] Unable to determine For continuity of documentation, please document condition throughout progress notes and discharge summary. Thank You. CLINICAL INDICATORS - SIGNS / SYMPTOMS / LABS s/p cabg 3 weeks prior - PN 02/25/2018 NSTEMI - PN per cards, possible occlusion of small graft from cabg 3 weeks prior not ammenable to intervention vs demand ischemia - PN 02/25/2018 RISK FACTORS acute hypoxic respiratory failure, cardiomyopathy, CAD - PN 02/25/2018, TREATMENTS: therapeutic lovenox - PN 02/25/2018 (This form is maintained as a part of the permanent medical record) 2014 [employer]. All Rights Reserved Sol Herrera, CCS, SIGN ARTIST, CASC [email or web address]
== END 2018-02-25 14:57 | disposition home or self-care (01) | DRG 291 ==
LOC: ERS 09:18 → CCU 11:37 → 2NO 17:47
PROVIDERS: ADMIT Family Medicine; ATTEND Family Medicine
DX: I11.0 Hypertensive heart disease with heart failure (principal); J96.01 Acute respiratory failure with hypoxia; J96.02 Acute respiratory failure with hypercapnia; I50.23 Acute on chronic systolic (congestive) heart failure; E78.5 Hyperlipidemia, unspecified; R00.0 Tachycardia, unspecified; I25.10 Atherosclerotic heart disease of native coronary artery without angina pectoris; I08.3 Combined rheumatic disorders of mitral, aortic and tricuspid valves; F41.9 Anxiety disorder, unspecified; F32.9 Major depressive disorder, single episode, unspecified; I25.5 Ischemic cardiomyopathy; D64.9 Anemia, unspecified; M06.9 Rheumatoid arthritis, unspecified; M19.90 Unspecified osteoarthritis, unspecified site; Z79.52 Long term (current) use of systemic steroids; Z79.899 Other long term (current) drug therapy; Z79.02 Long term (current) use of antithrombotics/antiplatelets; Z88.0 Allergy status to penicillin; Z87.891 Personal history of nicotine dependence; Z95.1 Presence of aortocoronary bypass graft
CPT/HCPCS: 36415; 71045; 71275; 80048; 80053; 82553; 82805; 83605; 83735; 83880; 84484; 85007; 85025; 85027; 85379; 85610; 85730; 90471; 90662; 93005; 93306; 93798; 94640; 96374; G0008; J1650; J1940; J7620